=== PATIENT | male | born 1950 | race Caucasian/White ===

== ENCOUNTER 2017-07-07 16:05 | Emergency (ER) | payer MEDICARE, OTHER ==
[~2017-07-07] VITALS: Ht 177.8 cm; Wt 77.1 kg
--- NOTE | 2017-07-07 16:25 | NUR ---
DR HERBERT AT THE BEDSIDE FOR EVAL AND EXAM.
[2017-07-07] MEDS ORDERED: HYDR-3326 PO (16:48)
[2017-07-07] MEDS ORDERED: ACET-2154 PO (16:48)
[2017-07-07] MEDS ORDERED: QUET25TA PO (16:48)
[2017-07-07] MEDS ORDERED: DEXT1DRO3 OP (16:48)
[2017-07-07] MEDS ORDERED: MELA3TAB PO (16:48)
[2017-07-07] MEDS ORDERED: DEXT1CAP3 PO (16:48)
[2017-07-07] MEDS ORDERED: LORA0.5T PO (16:48)
[2017-07-07] MEDS ORDERED: SENN8.6T22 PO (16:48)
[2017-07-07] MEDS ORDERED: METO25TA6 PO (16:48)
[2017-07-07] MEDS ORDERED: CRAN450C PO (16:48)
[2017-07-07] MEDS ORDERED: OMEP20TA5 PO (16:48)
[2017-07-07] MEDS ORDERED: SERT25TA PO (16:48)
[2017-07-07] MEDS ORDERED: QUET50TA PO (16:48)
[2017-07-07] MEDS ORDERED: ALBU1.257 NEB (16:48)
[2017-07-07] MEDS ORDERED: MULT1TAB11 PO (16:48)
[2017-07-07] MEDS ORDERED: ASCO500T10 PO (16:48)
[2017-07-07] MEDS ORDERED: TRAM50TA2 PO (16:48)
--- NOTE | 2017-07-07 17:25 | NUR ---
CALLED [facility] AND NOTIFIED OF PT'S RETURN TO FACILITY.
--- NOTE | 2017-07-07 17:26 | NUR ---
CALLED [facility] FOR TX TRANSFERN ETA 30 MIN.
--- NOTE | 2017-07-07 18:03 | NUR ---
DR COOK CALLED AND PT WILL BE ADMITTED TO M/S.
--- NOTE | 2017-07-07 18:05 | NUR ---
[facility] TX CANCELLED.
--- NOTE | 2017-07-07 18:16 | NUR ---
[facility] COLLECTED AND SENT TO LAB, BELONGING LIST COMPLETED.
--- NOTE | 2017-07-07 18:18 | NUR ---
PT REFUSED BLOOD DRAW, ER AWARE.
--- NOTE | 2017-07-07 18:32 | NUR ---
PAGED DR COOK PER MD REQUEST. PT STATES HE DOES WANT BE ADMITTED.
--- NOTE | 2017-07-07 18:41 | NUR ---
DR COOK CALLED AND WAS NOTIFIED OF PT'S WISHES. [facility] CALLED AND ETA IS 30 MIN.
--- NOTE | 2017-07-07 18:42 | NUR ---
IV removed. Catheter intact and site benign. Pressure and 4x4 gauze applied to site. No bleeding noted.
[2017-07-07 18:45] VITALS: BP 121/78
--- NOTE | 2017-07-07 19:27 | NUR ---
[facility] HERE TO OB/GYN NURSE PATIENT. PATIENT LEFT IN STABLE CONDITION, NO ACUTE DISTRESS NOTED AT THIS TIME. Patient discharged to [facility] in stable conditon. Written and verbal after care instructions given. Patient verbalizes understanding of instructions.
== END 2017-07-07 19:32 | disposition home or self-care (01) ==
LOC: ER 16:05
DX: N99.538 Other complication of continent stoma of urinary tract (principal); Z85.51 Personal history of malignant neoplasm of bladder; I10 Essential (primary) hypertension
CPT/HCPCS: 71010; 73630; 93005; A4663

== ENCOUNTER 2017-07-19 15:01 | Inpatient (IN) | payer MEDICARE, OTHER ==
[~2017-07-19] VITALS: Ht 177.8 cm; Wt 77.1 kg
[~2017-07-19 15:01] MED LIST: ACET-2154 PO; ALBU1.257 NEB; ASCO500T10 PO; CRAN450C PO; DEXT1CAP3 PO; DEXT1DRO3 OP; HYDR-3326 PO; LORA0.5T PO; MELA3TAB PO; METO25TA6 PO; MULT1TAB11 PO; OMEP20TA5 PO; QUET25TA PO; QUET50TA PO; SENN8.6T22 PO; SERT25TA PO; TRAM50TA2 PO
[2017-07-19 15:54] LABS: EOSINOPHILS # (AUTO) 0.1 K/uL (0.0-0.7); LYMPHOCYTES # (AUTO) 1.7 K/UL (0.8-4.8); MONOCYTES # (AUTO) 0.3 K/UL (0.1-1.30)
[2017-07-19 15:58] LABS: BASOPHILS % (AUTO) 0.6 % (0.0-2.0); EOSINOPHILS % (AUTO) 0.9 % (0.0-7.0); HEMATOCRIT 45.7 % (40-50); HEMOGLOBIN 14.9 G/DL (14.0-18.0); LYMPHOCYTES % (AUTO) 22.4 % (20.5-51.5); MEAN CORPUSCULAR HEMOGLOBIN 30.7 UUG (27.0-31.0); MEAN CORPUSCULAR HGB CONC 33 g/dL (32.0-37.0); MEAN CORPUSCULAR VOLUME 93.9 FL (82.0-92.0); NEUTROPHILS # (AUTO) 5.5 K/UL (1.8-8.9); NEUTROPHILS % (AUTO) 72.1 % (38.5-71.5); PLATELET COUNT (AUTO) 309 K/UL (150-450); RED BLOOD CELL COUNT(AUTO) 4.87 MIL/UL (4.7-6.1); WHITE BLOOD COUNT (AUTO) 7.6 K/UL (4.0-11.2)
[2017-07-19 16:09] LABS: *BILIRUBIN,URIN NEGATIVE (NEGATIVE); *BLOOD, URINE NEGATIVE (NEGATIVE); *COLOR,URINE YELLOW (YELLOW); *KETONES,URINE NEGATIVE (NEGATIVE); *PROTEIN,URINE 1+ (NEGATIVE); *UROBILINOGEN,URINE 0.2 E.U./dl (NORMAL); LEUKOCYTE ESTERASE ,URINE TRACE (NEGATIVE); NITRITE, URINE NEGATIVE (NEGATIVE); PH,URINE 8.5 (5.0-8.0); UGLUCOSE NEGATIVE (NEGATIVE)
[2017-07-19 16:10] LABS: CREATININE 1.2 mg/dL (0.6-1.3); POTASSIUM 4.2 mmol/L (3.5-5.1)
[2017-07-19 16:16] LABS: ACETAMINOPHEN < 2.0 ug/mL (10-30); BILIRUBIN,DIRECT 0.1 mg/dL (0.0-0.2); BILIRUBIN,TOTAL 0.5 mg/dL (0.2-1.0); TOTAL PROTEIN, SERUM 7.7 g/dL (6.4-8.2)
[2017-07-19 16:24] LABS: *AMPHETAMINE, URINE NEGATIVE (NEGATIVE); *BARBITURATE, URINE NEGATIVE (NEGATIVE); *CANNABINOID, URINE POSITIVE (NEGATIVE); *COCCAINE, URINE NEGATIVE (NEGATIVE); *OPIATE, URINE POSITIVE (NEGATIVE); *PHENCYCLIDINE SCREEN,URINE NEGATIVE (NEGATIVE); ETHANOL < 3 MG/DL (0-0)
[2017-07-19 16:40] LABS: *CLARITY,URINE HAZY (CLEAR)
[2017-07-19 16:43] LABS: MUCUS,URINE MANY /LPF (0-FEW); TRIPLE PHOSPHATE CRYSTAL,UR MODERATE /HPF (NONE SEEN); URINE AMORPHOUS PHOSPHATES MODERATE /HPF
[2017-07-19 16:45] LABS: BACTERIA,URINE MODERATE /HPF (NONE SEEN)
[2017-07-19] MEDS ORDERED: SULF1TAB47 PO (17:02)
[2017-07-19] MEDS ORDERED: ASPI-618 PO (17:02)
[2017-07-19 20:56] VITALS: BP 110/73
[2017-07-20 07:37] VITALS: BP 104/70
[2017-07-20 12:30] VITALS: BP 104/68
[2017-07-20 16:06] VITALS: BP 107/68
[2017-07-20 20:35] VITALS: BP 113/73
[2017-07-21 00:38] VITALS: BP 92/44
[2017-07-21 04:00] VITALS: BP 94/50
[2017-07-21 07:46] VITALS: BP 93/55
[2017-07-21 11:55] VITALS: BP 99/70
[2017-07-21 15:33] VITALS: BP 108/67
[2017-07-21 19:41] VITALS: BP 105/69
[2017-07-22 10:37] VITALS: BP 117/68
[2017-07-22 15:07] VITALS: BP 110/74
[2017-07-22] MEDS ORDERED: METO25TA6 PO (17:33)
[2017-07-22] MEDS ORDERED: SULF1TAB3 PO (17:33)
[2017-07-22] MEDS ORDERED: ALBU1.25 NEB (17:33)
[2017-07-22] MEDS ORDERED: DIVA125T2 PO (17:33)
[2017-07-22 20:00] VITALS: BP 119/74
== END 2017-07-22 20:05 | DRG 689 ==
LOC: ER 15:03 → TELE 19:18 → MED 07-22 07:45
PROVIDERS: ADMIT Internal Medicine; ATTEND Internal Medicine
DX: N39.0 Urinary tract infection, site not specified (principal); I21.4 Non-ST elevation (NSTEMI) myocardial infarction; D68.59 Other primary thrombophilia; I11.0 Hypertensive heart disease with heart failure; R13.10 Dysphagia, unspecified; I50.22 Chronic systolic (congestive) heart failure; Z93.6 Other artificial openings of urinary tract status; F20.9 Schizophrenia, unspecified; Z87.11 Personal history of peptic ulcer disease; Z87.820 Personal history of traumatic brain injury; Z86.718 Personal history of other venous thrombosis and embolism; Z91.14 Patient's other noncompliance with medication regimen; Z85.51 Personal history of malignant neoplasm of bladder; Z87.898 Personal history of other specified conditions; F29 Unspecified psychosis not due to a substance or known physiological condition; F39 Unspecified mood [affective] disorder; G31.84 Mild cognitive impairment of uncertain or unknown etiology; B95.1 Streptococcus, group B, as the cause of diseases classified elsewhere
CPT/HCPCS: 36415; 70030-TC; 71010; 80307; 83605; 85025; 85730; 87040; 87086; 93005; 93307; A4663; G0480; G0480-TC; J0696; J1650; J7060

== ENCOUNTER 2018-12-14 15:56 | Inpatient (IN) | payer MEDICARE, MEDICAID ==
[~2018-12-14] VITALS: Ht 177.8 cm; Wt 78.0 kg
[~2018-12-14 15:56] MED LIST changes: +ALBU1.25 NEB; -ALBU1.257 NEB; +ASPI-618 PO; +DIVA125T2 PO; -LORA0.5T PO; +SULF1TAB3 PO; -TRAM50TA2 PO
--- NOTE | 2018-12-14 16:12 | NUR ---
NO REPORT RECEIVED FROM SENDING FACILITY.
--- NOTE | 2018-12-14 16:15 | NUR ---
PATIENT HERE FROM [facility]. HE IS AWAKE AND ALERT. PLACED ON MONITOR.
[2018-12-14] MEDS ORDERED: OXCA300T4 PO (16:22)
[2018-12-14 16:29] LABS: BASOPHILS # (AUTO) 0.1 K/uL (0.0-8.0); BASOPHILS % (AUTO) 0.8 % (0.0-2.0); EOSINOPHILS # (AUTO) 0.2 K/uL (0.0-0.7); EOSINOPHILS % (AUTO) 2.7 % (0.0-7.0); HEMATOCRIT 42.4 % (36.7-47.1); HEMOGLOBIN 14.2 g/dL (12.5-16.3); LYMPHOCYTES # (AUTO) 2.6 K/uL (20.0-40.0); LYMPHOCYTES % (AUTO) 31.2 % (20.5-51.5); MEAN CORPUSCULAR HEMOGLOBIN 31.7 uug (23.8-33.4); MEAN CORPUSCULAR HGB CONC 34 g/dL (32.5-36.3); MEAN CORPUSCULAR VOLUME 94.5 fL (73.0-96.2); MONOCYTES # (AUTO) 0.6 K/uL (2.0-10.0); NEUTROPHILS # (AUTO) 4.9 K/uL (1.8-8.9); NEUTROPHILS % (AUTO) 58.3 % (38.5-71.5); PLATELET COUNT (AUTO) 211 K/uL (152-348); RED BLOOD CELL COUNT(AUTO) 4.48 MIL/uL (4.06-5.63); WHITE BLOOD COUNT (AUTO) 8.4 K/uL (3.6-10.2)
[2018-12-14 16:36] LABS: POTASSIUM 4.5 mmol/L (3.5-5.1)
[2018-12-14] MEDS ORDERED: ACETAMINOPHEN ES 500 MG TABLET ONE (16:54)
[2018-12-14] MEDS ORDERED: NORMAL SALINE FLUSH 10 ML DISP.SYRIN ONE (16:58)
[2018-12-14] MEDS ORDERED: IOHEXOL 300MG/ML 100 ML INFUS..BTL ONE (16:58)
[2018-12-14] MEDS ORDERED: SWABABLE VALVE TRANSFER SET EA MC ONE (16:58)
[2018-12-14] MEDS ORDERED: IV NORMAL SALINE 250 ML IV ONE (16:58)
[2018-12-14] MEDS ORDERED: ACETAMINOPHEN ES 500 MG TABLET PO ONE (17:00)
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
[2018-12-14 18:00] LABS: *BILIRUBIN,URIN NEGATIVE (NEGATIVE); *BLOOD, URINE NEGATIVE (NEGATIVE); *CLARITY,URINE CLOUDY (CLEAR); *COLOR,URINE YELLOW (YELLOW); *KETONES,URINE NEGATIVE (NEGATIVE); *UROBILINOGEN,URINE 0.2 E.U./dl (NORMAL); LEUKOCYTE ESTERASE ,URINE 2+ (NEGATIVE); NITRITE, URINE NEGATIVE (NEGATIVE); UGLUCOSE NEGATIVE (NEGATIVE)
[2018-12-14 18:04] LABS: BACTERIA,URINE MANY /HPF (NONE SEEN); URINE AMORPHOUS PHOSPHATES MODERATE /HPF; WBC,URINE 20-50 /HPF (0-3)
--- NOTE | 2018-12-14 18:10 | NUR ---
ORIN MENENDEZ, WAS NOTIFIED THAT PATIENT IS BEING ADMITTED. REPORT GIVEN TO CONNOR HDZ.
[2018-12-14] MEDS ORDERED: VANCOMYCIN IV 200 ML ONE (18:14)
[2018-12-14] MEDS ORDERED: VANCOMYCIN IV 1,000 MG in IV DEXTROSE 5% 250 ML IV ONE (18:15)
[2018-12-14 18:32] VITALS: BP 130/82
--- NOTE | 2018-12-14 18:45 | NUR ---
68 year old male received from er via gurney for back pain ,pt is [id number] are stable call light with in reach, called for admission orders
[2018-12-14 19:00] VITALS: BP 115/76
[2018-12-14 20:15] VITALS: BP 125/75
[2018-12-14] MEDS ORDERED: ALBU1.25 IH (20:29)
[2018-12-14] MEDS ORDERED: METO25TA6 PO (20:29)
--- NOTE | 2018-12-14 20:30 | NUR ---
Admitted to [facility] floor via gurney, awake alert & oriented no SOB denies chest pain. Urostomy in place, strong odor w/ puss-like urine output noted. Patient stated he has lower back skin infection & c/o rectal pain. MD in room, seen & examined by Dr. Nugent. Received orders & carried out. Vital signs WNL, patient is afebrile.
[2018-12-14] MEDS ORDERED: METOPROLOL TARTRATE 25 MG TABLET PO SCH (21:00)
[2018-12-14] MEDS ORDERED: ACETAMINOPHEN 325 MG TABLET PO PRN (21:00)
[2018-12-14] MEDS ORDERED: Medication Not On Formulary EA (Quetiapine Fumarate (Seroquel) 50 MG) PO SCH (21:00)
[2018-12-14] MEDS ORDERED: ALBUTEROL SULFATE 1.25 MG/3 ML NEBU IH PRN (21:00)
[2018-12-14] MEDS: MELATONIN 3 MG TABLET PO SCH (21:38)
[2018-12-14] MEDS: HYDROCODONE/APAP 5-325MG TABLET PO PRN (21:38)
[2018-12-14] MEDS: SENNOSIDES 1 TABLET PO SCH (21:39)
[2018-12-14] MEDS ORDERED: PIPERACILLIN SODIUM/TAZO 3.375 GM VIAL ONE (21:48)
[2018-12-14] MEDS: PIPERACILLIN/TAZOBACTAM/D5W 3.375 G in PREMIXED 1 EACH IV SCH (22:07)
[2018-12-14] MEDS: QUETIAPINE FUMARATE 25 MG TABLET PO SCH (22:11)
--- NOTE | 2018-12-14 22:30 | NUR ---
Zosyn 3.375 gm IVPB started as ordered. Late dinner provided, kept comfortable.
--- NOTE | 2018-12-15 | NUR ---
Had small BM. Perianal care provided, rectum abscess noted. See pictures in chart.
[2018-12-15] MEDS: PIPERACILLIN/TAZOBACTAM/D5W 3.375 G in PREMIXED 1 EACH IV SCH ×3 (05:24→22:00)
[2018-12-15] MEDS: PANTOPRAZOLE SODIUM 40 MG TABLET.DR PO SCH (05:25)
--- NOTE | 2018-12-15 05:35 | NUR ---
Patient refused getting her blood drawn. Patient refused to take her morning meds too. No sign of distress noted. Vital signs WNL. Addendum: 12/15/18 at 0546 by ALBERTO GORDON RN Disregard above notes, wrong entry.
--- NOTE | 2018-12-15 05:40 | NUR ---
Patient refused morning labs. No sign of distress noted. Vital signs WNL. Fall precaution observed, call light within reach.
[2018-12-15] MEDS ORDERED: Medication Not On Formulary EA (Sertraline Hcl (Zoloft) 25 MG) PO SCH (09:00)
[2018-12-15] MEDS ORDERED: Medication Not On Formulary EA (Multivitamins W-Minerals (Multivitamin With Minerals) 1 PO SCH (09:00)
[2018-12-15] MEDS: QUETIAPINE FUMARATE 25 MG TABLET PO SCH ×2 (09:06→21:00)
[2018-12-15] MEDS: SERTRALINE HCL 50 MG TABLET PO SCH (09:06)
[2018-12-15] MEDS: ASPIRIN EC 81 MG TABLET.DR PO SCH (09:06)
[2018-12-15] MEDS: MULTIVITAMINS,THERAPEUTIC TABLET PO SCH (09:07)
[2018-12-15] MEDS: ASCORBIC ACID 500 MG TABLET PO SCH ×2 (09:07→16:36)
--- NOTE | 2018-12-15 09:27 | NUR ---
Clinical pharmacy note-Vancomycin dosing per pharmacy Subjective: To start Vancomycin dosing on this patient for Documented infection(No MD note yet, ER note lower back pain concerning for infection) Objective: BUN /Scr 22/1.0(12/14) WBC 8.4(12/14) temp 98.7 Assessment/Plan: Patient had Vancomycin 1 gram in ER yesterday at 1817 Will continue Vancomycin 1gram IV every 12 hrs (first dose today at 1000) and draw trough by 4th dose(not ordered yet) for expected trough around 16. Will monitor daily.
[2018-12-15] MEDS: OXCARBAZEPINE 300 MG TABLET PO SCH ×3 (09:57→16:36)
[2018-12-15] MEDS: HYDROCODONE/APAP 5-325MG TABLET PO PRN ×2 (09:57→16:46)
[2018-12-15] MEDS ORDERED: VANCOMYCIN IV 1 G in PREMIXED 0 EACH IV SCH (10:00)
[2018-12-15 10:13] LABS: BASOPHILS # (AUTO) 0.1 K/uL (0.0-8.0); BASOPHILS % (AUTO) 0.9 % (0.0-2.0); EOSINOPHILS # (AUTO) 0.2 K/uL (0.0-0.7); EOSINOPHILS % (AUTO) 3.9 % (0.0-7.0); HEMATOCRIT 42.7 % (36.7-47.1); HEMOGLOBIN 14.5 g/dL (12.5-16.3); LYMPHOCYTES % (AUTO) 33.4 % (20.5-51.5); MEAN CORPUSCULAR HGB CONC 34 g/dL (32.5-36.3); MEAN CORPUSCULAR VOLUME 94.5 fL (73.0-96.2); MONOCYTES # (AUTO) 0.5 K/uL (2.0-10.0); MONOCYTES % (AUTO) 7.8 % (0.0-11.0); NEUTROPHILS # (AUTO) 3.2 K/uL (1.8-8.9); PLATELET COUNT (AUTO) 183 K/uL (152-348); RED BLOOD CELL COUNT(AUTO) 4.52 MIL/uL (4.06-5.63); WHITE BLOOD COUNT (AUTO) 5.9 K/uL (3.6-10.2)
[2018-12-15 10:36] LABS: THYROID STIMULATING HORMONE 1.037 mIU/mL (0.358-3.740)
[2018-12-15 11:02] VITALS: BP 95/51
--- NOTE | 2018-12-15 11:07 | NUR ---
WOUND CARE CONSULT WOUND CARE RECEIVED CONSULT FOR BACK PHLEGMON AND BUTTOCKS ABSCESS. WOUND CARE WILL DEFER CONSULT AND TREATMENT PLAN TO PLASTIC SURGICAL TEAM WHO HAS BEEN NOTIFIED OF THIS CONSULT. PATIENT WITH CECY AT 16, ALL PRESSURE ULCER PREVENTION MEASURES ARE NOTED TO BE IN PLACE. WILL SEE PRN.
[2018-12-15 11:59] LABS: BILIRUBIN,TOTAL 0.4 mg/dL (0.2-1.0); CREATININE 1.1 mg/dL (0.6-1.3); PHOSPHOROUS 3.1 mg/dL (2.5-4.9); TOTAL PROTEIN, SERUM 6.7 g/dL (6.4-8.2)
[2018-12-15 12:04] LABS: POTASSIUM 4.1 mmol/L (3.5-5.1)
--- NOTE | 2018-12-15 12:17 | NUR ---
Pt refused second IV site insertion. Pt was explained the benefits of have a second line and have zosyn run for a longer period of time. Pt understands the benefits and still refuses. Continue to monitor pt.
[2018-12-15 15:42] VITALS: BP 100/68
--- NOTE | 2018-12-15 18:17 | NUR ---
Pt has been sleeping intermittently through out the day, isolative,guarded, Aox3, ambulatory but refuses to walk, resistant to care. no signs of respiratory distress. Pain managed with [place], pt c/o 7-9 level pain on back. Pt's DPOA faxed paper work to nursing station. Continue to monitor pt.
--- NOTE | 2018-12-15 20:00 | NUR ---
RECEIVED PATIENT ASLEEP IN BED. PATIENT IS EASILY AROUSABLE. VERY HOSTILE WHEN APPROACHED. PATIENT REFUSED HS VITALS TO BE TAKEN. NO RESP. DISTRESS NOTED. H/L INTACT AND NOTED TO RIGHT HAND #20 GAUGE. BED ALARM ON. ALL NEEDS ATTENDED. WILL CONTINUE TO MONITOR AND ASSESS.
[2018-12-15] MEDS: SENNOSIDES 1 TABLET PO SCH (21:00)
[2018-12-15] MEDS: MELATONIN 3 MG TABLET PO SCH (21:00)
[2018-12-15] MEDS: SIMVASTATIN 10 MG TABLET PO SCH (21:00)
--- NOTE | 2018-12-15 22:06 | NUR ---
PATIENT PULLED OUT IV HEPLOCK. PATIENT IS REFUSING FOR IN RE-INSERTION. PATIENT INSTRUCTED THE IMPORTANCE OF IV ANTIBIOTICS, BUT PATIENT STILL REFUSED AND BECAME HOSTILE. CALLED OUT TO DR. GRIFFIN TRACTOR SWEEPER DRIVER FOR FURTHER ORDERS.
--- NOTE | 2018-12-15 22:15 | NUR ---
DR. GRIFFIN AWARE OF PATIENT REFUSING IV RE-INSERTION AND IV ANTIBIOTICS. OK PER MD UNTIL AM. PRIMARY SUBSTANCE ABUSE COUNSELOR NOTIFIED.
[2018-12-16] MEDS: PIPERACILLIN/TAZOBACTAM/D5W 3.375 G in PREMIXED 1 EACH IV SCH ×3 (05:19→22:03)
[2018-12-16] MEDS: PANTOPRAZOLE SODIUM 40 MG TABLET.DR PO SCH (06:02)
--- NOTE | 2018-12-16 06:07 | NUR ---
PATIENT ASLEEP IN BED. SLEPT WELL. EASILY AROUSABLE. PATIENT VERY HOSTILE WHEN APPROACHED. REFUSED FOR AM VITALS TO BE TAKEN. EDUCATED PATIENT ON IMPORTANCE OF VITALS AND PATIENT STILL REFUSED, YELLING AT STAFF. DIRECTOR OF VOCATIONAL GUIDANCE NOTIFIED. PATIENT DENIES PAIN. NO RESP. DISTRESS NOTED. WILL CONTINUE TO MONITOR.
[2018-12-16] MEDS: ASPIRIN EC 81 MG TABLET.DR PO SCH (08:53)
[2018-12-16] MEDS: OXCARBAZEPINE 300 MG TABLET PO SCH ×4 (08:53→17:15)
[2018-12-16] MEDS: MULTIVITAMINS,THERAPEUTIC TABLET PO SCH (08:53)
[2018-12-16] MEDS: QUETIAPINE FUMARATE 25 MG TABLET PO SCH ×2 (08:53→21:07)
[2018-12-16] MEDS: ASCORBIC ACID 500 MG TABLET PO SCH ×3 (08:54→17:15)
[2018-12-16] MEDS: SERTRALINE HCL 50 MG TABLET PO SCH (08:54)
--- NOTE | 2018-12-16 08:55 | NUR ---
Attempted to give AM PO meds to pt, but pt refused. Educated pt regarding meds, but pt still continued to refuse.
[2018-12-16 11:22] VITALS: BP 116/82
[2018-12-16] MEDS: HYDROCODONE/APAP 5-325MG TABLET PO PRN ×2 (11:38→19:50)
[2018-12-16 15:32] VITALS: BP 107/68
[2018-12-16 19:13] VITALS: BP 107/69
--- NOTE | 2018-12-16 20:00 | NUR ---
RECEIVED PATIENT AWAKE IN BED. PATIENT IS A/O X3. VERY ELATED WHEN APPROACHED. C/O PAIN IN LOWER BACK. PATIENT GIVEN NORCO 1 TAB PO PRN FOR PAIN. H/L INTACT AND PATENT. NO RESP. DISTRESS NOTED. ON AIR MATTRESS. BED ALARM ON. CALL LIGHT IN REACH. ALL NEEDS ATTENDED. WILL CONTINUE TO MONITOR AND ASSESS.
[2018-12-16] MEDS: MELATONIN 3 MG TABLET PO SCH (21:06)
[2018-12-16] MEDS: SIMVASTATIN 10 MG TABLET PO SCH (21:06)
[2018-12-16] MEDS: SENNOSIDES 1 TABLET PO SCH (21:07)
[2018-12-17] MEDS: PIPERACILLIN/TAZOBACTAM/D5W 3.375 G in PREMIXED 1 EACH IV SCH ×2 (06:05→13:17)
[2018-12-17] MEDS: PANTOPRAZOLE SODIUM 40 MG TABLET.DR PO SCH (06:16)
[2018-12-17] MEDS: QUETIAPINE FUMARATE 25 MG TABLET PO SCH (09:00)
[2018-12-17] MEDS: ASPIRIN EC 81 MG TABLET.DR PO SCH (09:00)
[2018-12-17] MEDS: MULTIVITAMINS,THERAPEUTIC TABLET PO SCH (09:00)
[2018-12-17] MEDS: ASCORBIC ACID 500 MG TABLET PO SCH ×2 (09:00→17:06)
[2018-12-17] MEDS: HYDROCODONE/APAP 5-325MG TABLET PO PRN ×2 (10:00→17:09)
[2018-12-17] MEDS: SERTRALINE HCL 50 MG TABLET PO SCH (10:02)
[2018-12-17] MEDS: OXCARBAZEPINE 300 MG TABLET PO SCH ×3 (10:06→17:07)
[2018-12-17 11:14] VITALS: BP 97/68
[2018-12-17] MEDS ORDERED: MORPHINE SULFATE 2 MG/1 ML DISP.SYRIN IV ONE (13:15)
[2018-12-17] MEDS ORDERED: MORPHINE SULFATE 4 MG/1 ML DISP.SYRIN IV ONE (13:15)
[2018-12-17] MEDS ORDERED: PANT40TA2 PO (13:58)
[2018-12-17] MEDS ORDERED: SIMV10TA6 PO (13:58)
[2018-12-17] MEDS ORDERED: PIPE3.379 IV (14:02)
[2018-12-17] MEDS ORDERED: RXVAN IV (14:02)
[2018-12-17] MEDS ORDERED: LACT1CAP61 PO (14:02)
[2018-12-17] MEDS ORDERED: CEFE1VIA3 IV (14:07)
[2018-12-17 15:13] VITALS: BP 108/68
--- NOTE | 2018-12-17 18:22 | NUR ---
[facility] PT is in no acute distress. Left IV on right AC #20 intact [facility] Pt verbalized understanding. Pt refused to have vaccination and to f/u with PMD.
== END 2018-12-17 18:24 | DRG 557 ==
LOC: ER 15:58 → MED 18:14
PROVIDERS: ADMIT Internal Medicine; ATTEND Internal Medicine
DX: M60.08 Infective myositis, other site (principal); G93.41 Metabolic encephalopathy; N39.0 Urinary tract infection, site not specified; D68.59 Other primary thrombophilia; B96.1 Klebsiella pneumoniae [K. pneumoniae] as the cause of diseases classified elsewhere; Z87.820 Personal history of traumatic brain injury; F19.10 Other psychoactive substance abuse, uncomplicated; I71.4 Abdominal aortic aneurysm, without rupture; K44.9 Diaphragmatic hernia without obstruction or gangrene; K40.90 Unilateral inguinal hernia, without obstruction or gangrene, not specified as recurrent; F17.210 Nicotine dependence, cigarettes, uncomplicated; I25.2 Old myocardial infarction; F41.9 Anxiety disorder, unspecified; E78.5 Hyperlipidemia, unspecified; F20.9 Schizophrenia, unspecified; G31.84 Mild cognitive impairment of uncertain or unknown etiology; R13.10 Dysphagia, unspecified; I11.9 Hypertensive heart disease without heart failure; K27.7 Chronic peptic ulcer, site unspecified, without hemorrhage or perforation; J39.8 Other specified diseases of upper respiratory tract; L90.5 Scar conditions and fibrosis of skin; Z74.09 Other reduced mobility; F32.9 Major depressive disorder, single episode, unspecified; Z85.828 Personal history of other malignant neoplasm of skin; Z91.14 Patient's other noncompliance with medication regimen; Z99.3 Dependence on wheelchair; Z91.19 Patient's noncompliance with other medical treatment and regimen; Z93.6 Other artificial openings of urinary tract status; Z79.82 Long term (current) use of aspirin; Z89.012 Acquired absence of left thumb; Z79.899 Other long term (current) drug therapy; Z86.718 Personal history of other venous thrombosis and embolism; Z87.440 Personal history of urinary (tract) infections; Z80.1 Family history of malignant neoplasm of trachea, bronchus and lung; Z85.51 Personal history of malignant neoplasm of bladder; K59.00 Constipation, unspecified
CPT/HCPCS: 36415; 71045; 83550; 83605; 83735; 84100; 84443; 85025; 87040; 87077; 87086; 93005; 97116; 97530; A4663; A9150; G0378; J2270; J2543; J3370; J3490; J7050; J7060; Q9967

== ENCOUNTER 2019-06-14 21:33 | Inpatient (IN) | payer MEDICARE, MEDICAID ==
[~2019-06-14] VITALS: Ht 180.3 cm; Wt 69.4 kg
[~2019-06-14 21:33] MED LIST changes: +ALBU1.25 IH; -ALBU1.25 NEB; +CEFE1VIA3 IV; -DEXT1CAP3 PO; -DIVA125T2 PO; +LACT1CAP61 PO; -OMEP20TA5 PO; +OXCA300T4 PO; +PANT40TA2 PO; +PIPE3.379 IV; +SIMV10TA6 PO; -SULF1TAB3 PO
--- NOTE | 2019-06-14 21:45 | NUR ---
Dr. Bhatt at bedside for MSE.
[2019-06-14] MEDS ORDERED: ONDANSETRON 4 MG/2 ML VIAL IV ONE (22:00)
[2019-06-14] MEDS ORDERED: IV NORMAL SALINE 1000 ML BAG IV ONE (22:00)
[2019-06-14] MEDS ORDERED: diphenhydrAMINE 50 MG CAPSULE PO ONE (22:00)
[2019-06-14] MEDS ORDERED: HYDROCODONE/APAP 10-325 MG TABLET PO ONE (22:00)
--- NOTE | 2019-06-14 22:02 | NUR ---
Xray at bedside.
--- NOTE | 2019-06-14 22:03 | NUR ---
While starting IV, patient pulled IV from the arm and threw it, stated he doesn't want any IV anymore. made aware.
--- NOTE | 2019-06-14 22:05 | NUR ---
Pt refused IV, blooddraw, and chest x-ray, notified.
--- NOTE | 2019-06-14 22:06 | NUR ---
Called Sidney Vasquez LCSW for pt psych eval
[2019-06-14] MEDS ORDERED: diphenhydrAMINE 50 MG CAPSULE ONE (22:12)
[2019-06-14] MEDS ORDERED: HYDROCODONE/APAP 10-325 MG TABLET ONE (22:12)
--- NOTE | 2019-06-14 22:31 | NUR ---
Urine sample collected from pt's urostomy bag, urine sent to lab. Pt provided with sandwich and juice per request.
[2019-06-14 22:33] LABS: *BILIRUBIN,URIN 1+ (NEGATIVE); *BLOOD, URINE 3+ (NEGATIVE); *CLARITY,URINE CLOUDY (CLEAR); *COLOR,URINE YELLOW (YELLOW); *KETONES,URINE 1+ (NEGATIVE); *UROBILINOGEN,URINE 0.2 E.U./dl (NORMAL); LEUKOCYTE ESTERASE ,URINE 1+ (NEGATIVE); NITRITE, URINE POSITIVE (NEGATIVE); UGLUCOSE NEGATIVE (NEGATIVE)
--- NOTE | 2019-06-14 22:34 | NUR ---
Sidney GUSTAFSONW arrived to ER for pt psych eval.
--- NOTE | 2019-06-14 22:44 | NUR ---
Art Capilla DOLPHIN RESEARCHER at bedside.
[2019-06-14 22:47] LABS: *AMPHETAMINE, URINE NEGATIVE (NEGATIVE); *BARBITURATE, URINE NEGATIVE (NEGATIVE); *CANNABINOID, URINE NEGATIVE (NEGATIVE); *COCCAINE, URINE NEGATIVE (NEGATIVE); *OPIATE, URINE NEGATIVE (NEGATIVE); *PHENCYCLIDINE SCREEN,URINE NEGATIVE (NEGATIVE)
[2019-06-14 22:48] LABS: RBC,URINE 80-100 /HPF (0-3)
[2019-06-14 22:51] LABS: BACTERIA,URINE MODERATE /HPF (NONE SEEN); SQUAMOUS EPITHELIAL CELL,UR FEW /HPF (NONE SEEN)
[2019-06-14] MEDS ORDERED: OLANZAPINE 10 MG VIAL IM ONE ×2 (22:57→23:00)
--- NOTE | 2019-06-14 23:00 | NUR ---
Pt refusing IV, was verbally abusive to staff, and was combative. Patient placed on soft medical restraints for safety. Patient was resisting and fighting the whole time while being placed on restraints.
[2019-06-14] MEDS ORDERED: OXYC10TA59 PO (23:08)
[2019-06-14] MEDS ORDERED: OXCA150T5 PO (23:08)
[2019-06-14] MEDS ORDERED: GABA300C PO (23:08)
[2019-06-14] MEDS ORDERED: CEFTRIAXONE 1 G VIAL ONE (23:13)
[2019-06-14] MEDS ORDERED: CEFTRIAXONE 1 G in IV DEXTROSE 5% 50 ML IV ONE (23:15)
--- NOTE | 2019-06-14 23:16 | NUR ---
Xray at bedside.
[2019-06-14 23:18] LABS: BASOPHILS % (AUTO) 0.5 % (0.0-2.0); EOSINOPHILS # (AUTO) 0.2 K/uL (0.0-0.7); HEMATOCRIT 41.1 % (36.7-47.1); LYMPHOCYTES # (AUTO) 2.6 K/uL (20.0-40.0); MEAN CORPUSCULAR HEMOGLOBIN 32.6 uug (23.8-33.4); MEAN CORPUSCULAR HGB CONC 34 g/dL (32.5-36.3); MEAN CORPUSCULAR VOLUME 95.8 fL (73.0-96.2); MONOCYTES # (AUTO) 0.6 K/uL (2.0-10.0); MONOCYTES % (AUTO) 6.7 % (0.0-11.0); NEUTROPHILS # (AUTO) 5.2 K/uL (1.8-8.9); NEUTROPHILS % (AUTO) 60.8 % (38.5-71.5); PLATELET COUNT (AUTO) 317 K/uL (152-348); RED BLOOD CELL COUNT(AUTO) 4.29 MIL/uL (4.06-5.63); WHITE BLOOD COUNT (AUTO) 8.6 K/uL (3.6-10.2)
[2019-06-14] MEDS ORDERED: ETOMIDATE 20 MG/10 ML VIAL ONE (23:20)
--- NOTE | 2019-06-14 23:20 | NUR ---
RADIOLOGY at bedside for CXR. Patient complaining of RIGHT shoulder pain during XRAY. ERMD notified, observed possible signs of RIGHT shoulder dislocation. Orders received.
--- NOTE | 2019-06-14 23:26 | NUR ---
Dr. Bhatt and Respiratory at bedside to begin conscious sedation and shoulder realignment procedure.
--- NOTE | 2019-06-14 23:27 | NUR ---
5mg etomidate given IV to left AC 20G.
--- NOTE | 2019-06-14 23:28 | NUR ---
5mg etomidate given IV to left AC 20G
[2019-06-14] MEDS ORDERED: ETOMIDATE 20 MG/10 ML VIAL IV ONE (23:30)
[2019-06-14 23:33] LABS: ACETAMINOPHEN 10.6 ug/mL (10-30); ALANINE AMINOTRANSFERASE 13 U/L (16-63); ALKALINE PHOSPHATASE 74 U/L (50-136); ASPARTATE AMINOTRANSFERASE 8 U/L (15-37); BILIRUBIN,DIRECT 0.1 mg/dL (0.0-0.2); BILIRUBIN,TOTAL 0.6 mg/dL (0.2-1.0); CARBON DIOXIDE 27 mmol/L (21-32); CHLORIDE 104 mmol/L (98-107); CREATININE 1.4 mg/dL (0.6-1.3); GLUCOSE 101 mg/dL (74-106); POTASSIUM 3.6 mmol/L (3.5-5.1); TOTAL PROTEIN, SERUM 8.1 g/dL (6.4-8.2); UREA NITROGEN, BLOOD 27 mg/dL (7-18)
--- NOTE | 2019-06-14 23:35 | NUR ---
2 point soft restraints released, pt stable, circulation is intact, no acute signs of distress, VSS.
--- NOTE | 2019-06-14 23:41 | NUR ---
Xray at bedside.
[2019-06-14 23:47] LABS: ETHANOL < 3 MG/DL (0-0)
--- NOTE | 2019-06-15 00:16 | NUR ---
CALLED EPIC PANEL. WAITING FOR ESTEPHANIE TURNER NP TO CALL BACK
--- NOTE | 2019-06-15 00:27 | NUR ---
Dr. Bhatt on panel call with Milo Pelayo NP. Pt accepted for admission to MHU, diagnosis: psychosis.
--- NOTE | 2019-06-15 00:48 | NUR ---
Report given to Sonal HDZ MHU.
[2019-06-15 00:58] LABS: THYROID STIMULATING HORMONE 0.767 mIU/mL (0.358-3.740)
[2019-06-15] MEDS ORDERED: MAG HYDROX/AL HYDROX/SIMETH 30 ML LIQUID UDC PO PRN (01:30)
[2019-06-15] MEDS ORDERED: ACETAMINOPHEN 325 MG TABLET PO PRN ×2 (01:30→13:45)
[2019-06-15] MEDS ORDERED: MAGNESIUM HYDROXIDE 30 ML LIQUID UDC PO PRN (01:30)
[2019-06-15] MEDS ORDERED: TEMAZEPAM 7.5 MG CAPSULE PO PRN (01:30)
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
[2019-06-15 02:40] VITALS: BP 101/57
[2019-06-15] MEDS: CLONAZEPAM 0.5 MG TABLET PO PRN (03:14)
[2019-06-15 07:30] VITALS: BP 102/64
--- NOTE | 2019-06-15 07:43 | NUR ---
350ml urine output was removed from patient's urostomy bag. pt refused blood drawn. will continue to monitor.
[2019-06-15] MEDS: NICOTINE 14 MG/24HR PATCH TD SCH (09:00)
[2019-06-15] MEDS: OLANZAPINE ZYDIS 5 MG TAB.RAPDIS PO SCH (12:25)
[2019-06-15] MEDS: DIVALPROEX 250 MG TABLET.DR PO SCH ×4 (12:25→17:39)
[2019-06-15] MEDS: CEphaleXIN 500 MG CAPSULE PO SCH ×3 (12:25→17:39)
[2019-06-15 16:00] VITALS: BP 119/75
--- NOTE | 2019-06-15 16:21 | NUR ---
Initial Discharge note Pt resides at [facility]: Address: [address] [place] [address], [place] [address]; , and will return upo discharge. Spoke with patients Konrad SCHAFER [[phone]] and he would like pt to return to [place].
[2019-06-15] MEDS: GABAPENTIN 400 MG CAPSULE PO SCH ×2 (17:00→17:39)
[2019-06-15] MEDS ORDERED: GABAPENTIN 300 MG CAPSULE PO SCH (17:00)
[2019-06-15] MEDS ORDERED: Medication Not On Formulary EA (Lactobacillus Acidophilus (Acidophilus) 1 EACH) PO SCH (17:00)
--- NOTE | 2019-06-15 17:30 | NUR ---
Gps/Foundry Patternmaker- Patient refusing to take routine pm meds. stated" i dont want to take those poison, and make sure to take it out of my bills" Patches of rashes upper back and lower extremities/shins area w/ dry scabs and patches of redness/bumps. Urostomy right quadrant of abdomen intact, draining hazy yellow urine. Fluids offered and encouraged. Assisted with repositioning self in bed. Irritable , encouraged participations in his group therapy. Stays in bed most of the day, refusing to be bothered.
[2019-06-15] MEDS: ASCORBIC ACID 500 MG TABLET PO SCH (17:39)
[2019-06-15 20:31] VITALS: BP 114/74
[2019-06-15] MEDS ORDERED: OXYCODONE HCL 5 MG TABLET ONE (20:36)
[2019-06-15] MEDS ORDERED: OXYCODONE HCL 10 MG TAB.SR.12H PO ONE (20:55)
[2019-06-15] MEDS ORDERED: Medication Not On Formulary EA (Oxycodone Hcl (Oxycontin) 15 MG) PO SCH (21:00)
[2019-06-15] MEDS: MELATONIN 3 MG TABLET PO SCH (21:00)
[2019-06-15] MEDS: SIMVASTATIN 10 MG TABLET PO SCH (21:00)
[2019-06-15] MEDS: CULTURELLE CAPSULE PO SCH (21:00)
[2019-06-15] MEDS: METOPROLOL TARTRATE 25 MG TABLET PO SCH (21:00)
[2019-06-15] MEDS: OXYCODONE HCL 10 MG TAB.SR.12H PO SCH (21:01)
[2019-06-16] MEDS: PANTOPRAZOLE SODIUM 40 MG TABLET.DR PO SCH (06:16)
[2019-06-16 07:30] VITALS: BP 98/75
[2019-06-16] MEDS: ASCORBIC ACID 500 MG TABLET PO SCH ×2 (09:00→17:36)
[2019-06-16] MEDS: MULTIVIT, IRON, MIN NO. 8, FA TABLET PO SCH (09:00)
[2019-06-16] MEDS: NICOTINE 14 MG/24HR PATCH TD SCH (09:00)
[2019-06-16] MEDS ORDERED: Medication Not On Formulary EA (Multivitamins W-Minerals (Multivitamin With Minerals) 1 PO SCH (09:00)
[2019-06-16] MEDS: METOPROLOL TARTRATE 25 MG TABLET PO SCH ×2 (09:00→20:34)
[2019-06-16] MEDS: CULTURELLE CAPSULE PO SCH ×2 (09:00→20:07)
[2019-06-16] MEDS: SENNOSIDES 1 TABLET PO SCH (09:00)
[2019-06-16] MEDS: CEphaleXIN 500 MG CAPSULE PO SCH ×2 (09:13→17:36)
[2019-06-16] MEDS: GABAPENTIN 400 MG CAPSULE PO SCH ×2 (09:13→17:36)
[2019-06-16] MEDS: DIVALPROEX 250 MG TABLET.DR PO SCH ×3 (09:14→17:36)
[2019-06-16] MEDS: OXYCODONE HCL 10 MG TAB.SR.12H PO SCH ×2 (09:14→20:33)
[2019-06-16] MEDS: OLANZAPINE ZYDIS 5 MG TAB.RAPDIS PO SCH (09:17)
[2019-06-16] MEDS: ASPIRIN EC 81 MG TABLET.DR PO SCH (09:18)
[2019-06-16] MEDS: HYDROCODONE/APAP 5-325MG TABLET PO PRN ×2 (11:59→17:42)
--- NOTE | 2019-06-16 13:26 | NUR ---
Gps/Form Grader Operator- Patient anxious, pushing front door, claimed he needs to get out of here" i am not a prisoner, in need to smoke to next building". Informed pt. he is on hold and cant not leave the hospital, patient was upset, verbalized anger, calling Doctors names . Claimed he gets angry easily. [place] self around the unit, offered prn [place] claimed will take the med. but when offered, refused to take, claimed he does not want to take poison .
[2019-06-16] MEDS: CLONAZEPAM 0.5 MG TABLET PO PRN (14:59)
[2019-06-16 15:42] VITALS: BP 91/65
--- NOTE | 2019-06-16 16:27 | NUR ---
PT NOTED ON W/C AT THIS TIME IN NURSES STATION. HIGHLY ANXIOUS AND AGITATED. DEMANDING ALL HIS CLOTHING FROM THE LOCKER. STATES STAFF "STOLE ALL MY SHIT, YOU FUCKING THIEVES." PT REQUESTING PANTS, BUT INSTRUCTED THAT THE STRINGS MUST BE CUT OFF OR REMOVED, DUE TO UNIT POLICY AND SAFETY. PT BECAME EVEN MORE AGGRESSIVE, THREATENING TO LETY EVERYONE, DEMANDING NURSE STAFF FIRST AND LAST NAME, STATES "I DON'T FUCKING CARE ABOUT OTHER PEOPLE THAT GET THAT SHIT, IF THEY WANT THEM TO HANG THEMSELVES, I COULDN'T GIVE TWO SHITS. BUT I WANT BY FUCKING PANTS." SECURITY WAS PRESENT. ESCORTED HIM OUTSIDE OF NURSES STATION. PT THEN WENT TO DAY ROOM, REMAINS CUSSING AT STAFF, MAKING REMARKS SUCH "YOU FUCKING LOSERS" AND OTHER BAD NAMES.
--- NOTE | 2019-06-16 17:30 | NUR ---
Gps/Electrical Timing Device Calibrator- After episodes of anger yelling and cursing calling staff names , patient finally calmed down, ate dinner in the dinning room. Came asking for his prn med. for lower back pain, as well as cigarette, informed and reviewed , reiterate ,this is not not a smoking hosp. re offered his nicotine patch , refused.Still requesting to check again his belongings he thinks he has cigarettes , informed and emphasized , he cannot smoke here no matter what.
--- NOTE | 2019-06-16 20:00 | NUR ---
RECEIVED PATIENT IN THE HALLWAY, SITTING IN A WHEEL CHAIR. HE IS NOTED A/O X 3, ABLE TO TRANSFER VIA WHEELCHAIR. HE NOTED CALM UPON APPROACHED. HE DENIES SI/HI/VH/AH. HE IS ABLE TO VERBALIZED FEELINGS. HE IS NOTED NEEDY; ASKING FOR PAIN MEDICATION FOR HIS BACK PAIN. V/S STABLE AT THIS TIME. PATIENT IS REASSURED AND REDIRECTED. HE IS REASSURED FOR HIS SAFETY, SAFETY AND FALL PRECAUTION IN PLACE. WILL CONTINUE TO MONITOR.
[2019-06-16] MEDS: MELATONIN 3 MG TABLET PO SCH (20:07)
[2019-06-16] MEDS: SIMVASTATIN 10 MG TABLET PO SCH (20:07)
--- NOTE | 2019-06-16 20:15 | NUR ---
PATIENT WAS HELPED TO BED. 200CC OF URINE OUTPUT WAS REMOVED FROM HIS UROSTOMY BAG. WILL CONTINUE TO MONITOR.
[2019-06-16 20:59] VITALS: BP 97/65
--- NOTE | 2019-06-17 06:58 | NUR ---
PATIENT SLEPT FOR APPROX 6.30 HRS THROUGH THE NIGHT. 700CC URINE OUTPUT WAS REMOVED FROM HIS UROSTOMY BAG. PATIENT REFUSED BLOOD DRAWN, PATIENT REFUSED PROTONIX. MULTIPLE REDIRECTION GIVEN WITH [place]; HOWEVER, HE REFUSED. WILL CONTINUE TO MONITOR.
[2019-06-17] MEDS: GABAPENTIN 400 MG CAPSULE PO SCH ×2 (08:57→17:47)
[2019-06-17] MEDS: OXYCODONE HCL 10 MG TAB.SR.12H PO SCH ×2 (08:58→21:27)
[2019-06-17] MEDS: OLANZAPINE ZYDIS 5 MG TAB.RAPDIS PO SCH ×2 (08:58→17:59)
[2019-06-17] MEDS: CULTURELLE CAPSULE PO SCH ×2 (09:00→21:26)
[2019-06-17] MEDS: NICOTINE 14 MG/24HR PATCH TD SCH (09:00)
[2019-06-17] MEDS: CEphaleXIN 500 MG CAPSULE PO SCH ×2 (09:00→17:47)
[2019-06-17] MEDS: SENNOSIDES 1 TABLET PO SCH (09:00)
[2019-06-17] MEDS: DIVALPROEX 250 MG TABLET.DR PO SCH ×3 (09:00→17:00)
[2019-06-17] MEDS: ASCORBIC ACID 500 MG TABLET PO SCH ×2 (09:00→17:00)
[2019-06-17] MEDS: ASPIRIN EC 81 MG TABLET.DR PO SCH (09:00)
[2019-06-17] MEDS: MULTIVIT, IRON, MIN NO. 8, FA TABLET PO SCH (09:00)
[2019-06-17] MEDS: METOPROLOL TARTRATE 25 MG TABLET PO SCH ×2 (09:00→21:28)
[2019-06-17] MEDS: PANTOPRAZOLE SODIUM 40 MG TABLET.DR PO SCH (09:01)
--- NOTE | 2019-06-17 09:49 | NUR ---
Gps/Calender Operator Helper- Selective with am routine meds. preferred to take his pain meds. Sat at the edge of the bed during breakfast, encouraged to attend his group therapy this am, claimed tired and wants to sleep.
[2019-06-17] MEDS: HYDROCODONE/APAP 5-325MG TABLET PO PRN (17:53)
[2019-06-17 20:00] VITALS: BP 118/64
[2019-06-17] MEDS: SIMVASTATIN 10 MG TABLET PO SCH (21:26)
[2019-06-17] MEDS: MELATONIN 3 MG TABLET PO SCH (21:27)
[2019-06-18] MEDS: PANTOPRAZOLE SODIUM 40 MG TABLET.DR PO SCH (06:37)
--- NOTE | 2019-06-18 06:39 | NUR ---
Slept well. No further complaint presented. Urostomy intact and patent with QS urine output, cloudy yellow with a lot of sediments. Encourage increase oral fluid intake as tolerated. No fall/injury. All needs attended and met. Calm and cooperative with care. No significant event reported all night. Continue care as planned.
[2019-06-18 07:30] VITALS: BP 84/50
[2019-06-18] MEDS: DIVALPROEX 250 MG TABLET.DR PO SCH ×3 (09:00→17:00)
[2019-06-18] MEDS: GABAPENTIN 400 MG CAPSULE PO SCH ×2 (09:00→17:00)
[2019-06-18] MEDS: METOPROLOL TARTRATE 25 MG TABLET PO SCH ×2 (09:00→21:00)
[2019-06-18] MEDS: OLANZAPINE ZYDIS 5 MG TAB.RAPDIS PO SCH ×2 (09:00→17:00)
[2019-06-18] MEDS: SENNOSIDES 1 TABLET PO SCH (09:00)
[2019-06-18] MEDS: MULTIVIT, IRON, MIN NO. 8, FA TABLET PO SCH (09:00)
[2019-06-18] MEDS: NICOTINE 14 MG/24HR PATCH TD SCH (09:00)
[2019-06-18] MEDS: CULTURELLE CAPSULE PO SCH ×2 (09:45→20:39)
[2019-06-18] MEDS: CEphaleXIN 500 MG CAPSULE PO SCH ×2 (09:53→17:00)
[2019-06-18] MEDS: ASCORBIC ACID 500 MG TABLET PO SCH ×2 (09:55→17:00)
[2019-06-18] MEDS: ASPIRIN EC 81 MG TABLET.DR PO SCH (09:55)
[2019-06-18] MEDS: OXYCODONE HCL 10 MG TAB.SR.12H PO SCH ×2 (09:55→20:19)
[2019-06-18] MEDS: HYDROCODONE/APAP 5-325MG TABLET PO PRN (13:45)
[2019-06-18 15:10] VITALS: BP 95/59
[2019-06-18] MEDS: CLONAZEPAM 0.5 MG TABLET PO PRN (15:10)
--- NOTE | 2019-06-18 18:00 | NUR ---
Patient was given his PM medications in a cup. Pt asked to be given extra pain medication - [place]. Nurse said she can bring it after patient takes the medication in the cup. Pt took the cup looked at it and said "Oh, you want me to take this?, You bitch! I only will take [place]!" and threw the medication on the ground.
[2019-06-18 19:57] VITALS: BP 101/69
[2019-06-18] MEDS: MELATONIN 3 MG TABLET PO SCH (20:19)
[2019-06-18] MEDS: SIMVASTATIN 10 MG TABLET PO SCH (20:39)
[2019-06-19] MEDS: PANTOPRAZOLE SODIUM 40 MG TABLET.DR PO SCH (06:37)
[2019-06-19] MEDS: METOPROLOL TARTRATE 25 MG TABLET PO SCH ×2 (09:00→21:00)
[2019-06-19] MEDS: GABAPENTIN 400 MG CAPSULE PO SCH ×2 (09:00→16:03)
[2019-06-19] MEDS: MULTIVIT, IRON, MIN NO. 8, FA TABLET PO SCH (09:00)
[2019-06-19] MEDS: NICOTINE 14 MG/24HR PATCH TD SCH ×2 (09:00→13:28)
[2019-06-19] MEDS: OLANZAPINE ZYDIS 5 MG TAB.RAPDIS PO SCH ×2 (09:00→16:03)
[2019-06-19] MEDS: CULTURELLE CAPSULE PO SCH ×2 (09:00→21:00)
[2019-06-19] MEDS: DIVALPROEX 250 MG TABLET.DR PO SCH ×3 (09:00→16:03)
[2019-06-19] MEDS: CEphaleXIN 500 MG CAPSULE PO SCH ×2 (09:06→16:03)
[2019-06-19] MEDS: OXYCODONE HCL 10 MG TAB.SR.12H PO SCH ×2 (09:06→21:00)
[2019-06-19] MEDS: SENNOSIDES 1 TABLET PO SCH (09:06)
[2019-06-19] MEDS: ASPIRIN EC 81 MG TABLET.DR PO SCH (09:07)
[2019-06-19] MEDS: ASCORBIC ACID 500 MG TABLET PO SCH ×2 (09:07→16:03)
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
[2019-06-19] MEDS ORDERED: MINERAL OIL/PETROLATUM,WHITE 57 GM TUBE TOP PRN (13:00)
[2019-06-19] MEDS: HYDROCODONE/APAP 5-325MG TABLET PO PRN ×2 (13:27→19:34)
[2019-06-19] MEDS: CLONAZEPAM 0.5 MG TABLET PO PRN (15:42)
[2019-06-19 16:07] VITALS: BP 101/63
[2019-06-19] MEDS ORDERED: diphenhydrAMINE 1% CREAM 28.3 GM TUBE TP PRN (17:00)
--- NOTE | 2019-06-19 17:45 | NUR ---
GPS: Received patient AOx3, with urostomy bag attach with 700ml of clear yellow urine, remove urine from the bag, change urostomy bag , patient verbalizes of generalized pain , prn medication given , patient also verbalizes that he has itchiness in his back, called and spoke with Dr. Esteban with orders made and carried , patient made aware, visited by his sister during lunch time, patient kept safe at all time, patient ambulates on wheelchair and comfortably watching TV in the dining room, will continue monitor
--- NOTE | 2019-06-19 17:50 | NUR ---
urostomy bag emptied throughout the day with 900ml clear yellow urine output
[2019-06-19 19:59] VITALS: BP 115/74
[2019-06-19] MEDS: SIMVASTATIN 10 MG TABLET PO SCH (21:00)
[2019-06-19] MEDS: MELATONIN 3 MG TABLET PO SCH (21:00)
[2019-06-20] MEDS: PANTOPRAZOLE SODIUM 40 MG TABLET.DR PO SCH (06:21)
[2019-06-20 07:30] VITALS: BP 104/61
--- NOTE | 2019-06-20 08:12 | NUR ---
Discharge Note Patient [facility] be [facility] [[address] [place] [address]; [phone]]. Please arrange Ambulance transportation for the patient by 2pm. Patient is aware and agreeable with discharge plans. SW spoke with Reba [Computer Aide; [phone]] who stated that the patient is able to return today. Patient will follow up with Psychiatrist, Dr. Nowak and Cooker Meal, Dr. Douglas at [facility] [[address] [place] [address]; [phone]]. Patient was provided with referrals to [facility] ; [facility] ; [facility] [employer] Suicide Prevention [facility] .
[2019-06-20 09:00] VITALS: BP 104/61
[2019-06-20] MEDS: METOPROLOL TARTRATE 25 MG TABLET PO SCH (09:00)
[2019-06-20] MEDS: CULTURELLE CAPSULE PO SCH (09:00)
[2019-06-20] MEDS: ASPIRIN EC 81 MG TABLET.DR PO SCH (09:38)
[2019-06-20] MEDS: ASCORBIC ACID 500 MG TABLET PO SCH (09:38)
[2019-06-20] MEDS: DIVALPROEX 250 MG TABLET.DR PO SCH ×2 (09:39→12:14)
[2019-06-20] MEDS: MULTIVIT, IRON, MIN NO. 8, FA TABLET PO SCH (09:39)
[2019-06-20] MEDS: OLANZAPINE ZYDIS 5 MG TAB.RAPDIS PO SCH (09:39)
[2019-06-20] MEDS: SENNOSIDES 1 TABLET PO SCH (09:39)
[2019-06-20] MEDS: GABAPENTIN 400 MG CAPSULE PO SCH (09:39)
[2019-06-20] MEDS: CEphaleXIN 500 MG CAPSULE PO SCH (09:39)
[2019-06-20] MEDS: OXYCODONE HCL 10 MG TAB.SR.12H PO SCH (09:40)
[2019-06-20] MEDS: NICOTINE 14 MG/24HR PATCH TD SCH (09:40)
[2019-06-20] MEDS: HYDROCODONE/APAP 5-325MG TABLET PO PRN (12:14)
--- NOTE | 2019-06-20 14:49 | NUR ---
Discharge Note Patient will be discharged back to [facility] [[address] [place] [address]; [phone]]. Ambulance transportation was arrange . Patient is aware and agreeable with discharge plans. gave home medication and dischage instruction to the patient, spoke and gave [facility] [place], patient denies SI and HI, gave PRN medication for his chronic back pain, patient was calm and cooperative, in no distress during discharge, compliant with his medication, aware, will continue follow up in the facility as planned, patient DPOA aware of the Discharge all needs met
--- NOTE | 2019-06-20 14:58 | NUR ---
GPS: patient refused to have his skin to have picture, skin condition shows some rashes, in his back side
== END 2019-06-20 15:00 | DRG 885 ==
LOC: ER 21:35 → GPS 06-15 00:30
PROVIDERS: ADMIT Psychiatry & Neurology Psychiatry; ATTEND Registered Nurse
PROC: 0RSJXZZ Reposition Right Shoulder Joint, External Approach (ICD-10-PCS; principal; 2019-06-15)
DX: F39 Unspecified mood [affective] disorder (principal); N17.9 Acute kidney failure, unspecified; Z93.6 Other artificial openings of urinary tract status; N39.0 Urinary tract infection, site not specified; G82.20 Paraplegia, unspecified; E44.1 Mild protein-calorie malnutrition; G93.40 Encephalopathy, unspecified; F29 Unspecified psychosis not due to a substance or known physiological condition; Z87.440 Personal history of urinary (tract) infections; Z85.51 Personal history of malignant neoplasm of bladder; E78.5 Hyperlipidemia, unspecified; B96.89 Other specified bacterial agents as the cause of diseases classified elsewhere; I10 Essential (primary) hypertension; Z86.59 Personal history of other mental and behavioral disorders; Z79.899 Other long term (current) drug therapy; Z79.82 Long term (current) use of aspirin; Z87.820 Personal history of traumatic brain injury; K21.9 Gastro-esophageal reflux disease without esophagitis; Z85.828 Personal history of other malignant neoplasm of skin; Z87.11 Personal history of peptic ulcer disease; M24.311 Pathological dislocation of right shoulder, not elsewhere classified; M54.5 Low back pain; M79.671 Pain in right foot; R21 Rash and other nonspecific skin eruption; T14.90XS Injury, unspecified, sequela; W34.00XS Accidental discharge from unspecified firearms or gun, sequela; Z86.718 Personal history of other venous thrombosis and embolism; G89.4 Chronic pain syndrome; Z95.828 Presence of other vascular implants and grafts
CPT/HCPCS: 36415; 70030-TC; 71045; 73020; 73630; 80307; 84443; 85025; 87086; 93005; A4663; G0480; G0480-TC; G0500; J0696; J2358; J3490; J7030; J7060; Q0163

== ENCOUNTER 2021-11-12 12:07 | Inpatient (IN) | payer MEDICARE, OTHER ==
[~2021-11-12] VITALS: Ht 172.7 cm; Wt 70.3 kg
[~2021-11-12 12:07] MED LIST changes: -ALBU1.25 IH; +CLIN300C12 PO; +GABA300C PO; -MELA3TAB PO; +MELA3TAB41 PO; -OXCA300T4 PO; +OXYC10TA59 PO; -QUET25TA PO; -QUET50TA PO; -SERT25TA PO; -SIMV10TA6 PO; +SIMV10TA98 PO
--- NOTE | 2021-11-12 13:00 | NUR ---
Pt attempting to hit staff when we tried to insert saline lock and collect blood specimens. I was able to collect COVID and urine specimens which were sent to lab. Called lab for blood draw and they stated there is no block feeder on duty today.
[2021-11-12 13:09] LABS: *BILIRUBIN,URIN NEGATIVE (NEGATIVE); *BLOOD, URINE 3+ (NEGATIVE); *CLARITY,URINE CLOUDY (CLEAR); *COLOR,URINE Brown (YELLOW); *KETONES,URINE 1+ (NEGATIVE); *UROBILINOGEN,URINE 0.2 E.U./dl (NORMAL); LEUKOCYTE ESTERASE ,URINE 3+ (NEGATIVE); NITRITE, URINE POSITIVE (NEGATIVE); PH,URINE 8.5 (5.0-8.0); UGLUCOSE NEGATIVE (NEGATIVE)
[2021-11-12 13:21] LABS: *AMPHETAMINE, URINE NEGATIVE (NEGATIVE); *CANNABINOID, URINE NEGATIVE (NEGATIVE); *COCCAINE, URINE NEGATIVE (NEGATIVE); *OPIATE, URINE POSITIVE (NEGATIVE); *PHENCYCLIDINE SCREEN,URINE NEGATIVE (NEGATIVE)
--- NOTE | 2021-11-12 13:25 | NUR ---
Saline lock started to LAC with the assistance of two other staff members, blood specimens collected and sent to lab.
[2021-11-12 13:51] LABS: HEMATOCRIT 46.1 % (36.7-47.1); MEAN CORPUSCULAR HEMOGLOBIN 31.6 uug (23.8-33.4); MEAN CORPUSCULAR VOLUME 93.9 fL (73.0-96.2); PLATELET COUNT (AUTO) 372 K/uL (152-348)
[2021-11-12] MEDS ORDERED: CEFTRIAXONE 1 G in IV DEXTROSE 5% 50 ML IV ONE (14:00)
[2021-11-12] MEDS ORDERED: AZITHROMYCIN IV 500 MG in IV DEXTROSE 5% 250 ML IV ONE (14:00)
--- NOTE | 2021-11-12 14:00 | NUR ---
pt had lunch with good apetite.
[2021-11-12 14:04] LABS: CARBON DIOXIDE 31 mmol/L (21-32); CHLORIDE 102 mmol/L (98-107); CREATININE 1.2 mg/dL (0.6-1.3); GLUCOSE 127 mg/dL (74-106); POTASSIUM 4.5 mmol/L (3.5-5.1); UREA NITROGEN, BLOOD 25 mg/dL (7-18)
[2021-11-12 14:06] LABS: ETHANOL < 3 MG/DL (0-0)
[2021-11-12 14:08] LABS: RBC,URINE 50-80 /HPF (0-3); SQUAMOUS EPITHELIAL CELL,UR FEW /HPF (NONE SEEN); WBC,URINE 20-50 /HPF (0-3)
[2021-11-12 14:09] LABS: BACTERIA,URINE MANY /HPF (NONE SEEN); TRIPLE PHOSPHATE CRYSTAL,UR MODERATE /HPF (NONE SEEN)
[2021-11-12 14:20] LABS: ALANINE AMINOTRANSFERASE 12 U/L (16-63); ALKALINE PHOSPHATASE 91 U/L (50-136); ASPARTATE AMINOTRANSFERASE 17 U/L (15-37); BILIRUBIN,DIRECT 0.1 mg/dL (0.0-0.2); BILIRUBIN,TOTAL 0.7 mg/dL (0.2-1.0)
--- NOTE | 2021-11-12 14:41 | NUR ---
pt refusedblood draw for culture at this time.
--- NOTE | 2021-11-12 14:45 | NUR ---
pt agitated, says thathe wants to go home, notified.
[2021-11-12 14:46] LABS: THYROID STIMULATING HORMONE 0.496 mIU/mL (0.358-3.740)
[2021-11-12] MEDS ORDERED: LORAZEPAM 2 MG/1 ML VIAL ONE (15:12)
[2021-11-12] MEDS ORDERED: LORAZEPAM 2 MG/1 ML VIAL IV ONE (15:15)
[2021-11-12] MEDS ORDERED: AZITHROMYCIN 500MG/ D5W 250ML IVPB **ER PYXIS ONLY IV ONE (15:28)
[2021-11-12] MEDS ORDERED: CEFTRIAXONE /D5W 50ML IVPB **ER PYXIS IV ONE (15:29)
[2021-11-12] MEDS ORDERED: ZIPRASIDONE MESYLATE 20 MG VIAL IM ONE ×2 (16:00→16:17)
[2021-11-12] MEDS ORDERED: ADENOSINE 6 MG/2 ML SYR IV ONE ×4 (16:45→17:15)
[2021-11-12] MEDS ORDERED: IV NORMAL SALINE 1000 ML BAG IV ONE (16:45)
--- NOTE | 2021-11-12 16:59 | NUR ---
svt noted on monitor, checked on pt, pt awake, denies any cp or sob asking to smoke cigarette. er md at bedside to push the adenisine.
--- NOTE | 2021-11-12 18:00 | NUR ---
pt resting, arousable, no sign of distress. sinus with pacs on bedside monitor.
[2021-11-12] MEDS ORDERED: GLUC1KIT IM (18:22)
[2021-11-12] MEDS ORDERED: OLAN2.5T3 PO (18:22)
[2021-11-12] MEDS ORDERED: DOXY-326 PO (18:22)
[2021-11-12] MEDS ORDERED: DEXT50VI3 IV (18:22)
[2021-11-12] MEDS ORDERED: MAGN400O6 PO (18:22)
[2021-11-12] MEDS ORDERED: ACETAMINOPHEN 325 MG TABLET-SA PATIENTS-PAIN ONLY PO PRN (20:15)
[2021-11-12] MEDS ORDERED: MAGNESIUM HYDROXIDE 30 ML LIQUID UDC PO PRN (20:15)
[2021-11-12] MEDS ORDERED: ACETAMINOPHEN 325 MG TABLET PO PRN ×2 (20:15)
[2021-11-12] MEDS ORDERED: HYDROCODONE/APAP 5-325MG TABLET PO PRN (20:15)
[2021-11-12] MEDS ORDERED: ENOXAPARIN SODIUM 40 MG/0.4 ML DISP.SYRIN SQ ONE (20:48)
[2021-11-12] MEDS ORDERED: MELATONIN 3 MG TABLET ONE (20:48)
[2021-11-12] MEDS: ENOXAPARIN SODIUM 40 MG/0.4 ML DISP.SYRIN SQ SCH (20:49)
[2021-11-12] MEDS: SIMVASTATIN 10 MG TABLET PO SCH (20:51)
[2021-11-12] MEDS: MELATONIN 3 MG TABLET PO SCH (20:51)
[2021-11-12] MEDS: OLANZAPINE 2.5 MG TABLET PO SCH (20:51)
[2021-11-12] MEDS ORDERED: OLANZAPINE 5 MG TABLET ONE (20:51)
[2021-11-12] MEDS ORDERED: SIMVASTATIN 10 MG TABLET ONE (20:51)
[2021-11-12] MEDS: METOPROLOL TARTRATE 25 MG TABLET PO SCH (20:52)
[2021-11-12] MEDS ORDERED: Medication Not On Formulary EA (Oxycodone Hcl (Oxycontin) 10 MG) PO SCH (21:00)
[2021-11-12] MEDS ORDERED: VANCOMYCIN IV 200 ML ONE (21:04)
[2021-11-12] MEDS: VANCOMYCIN IV 1,000 MG in IV DEXTROSE 5% 250 ML IV SCH (21:05)
--- NOTE | 2021-11-12 22:00 | NUR ---
Received patient via gurney, admitted to telemetry under the care of Dr. Douglas with sepsis as his admitting diagnosis. Patient is AAOx2-3, with episodes of aggression and non-compliance with plan of care. Patient is full code, NKA, and on cardiac diet. Patient denies SOB, chest pain or dizziness. On 2L O2, saturating 97%. Sinus rhythm on tele monitor. Patient denies SOB, chest pain or dizziness at this time. Received patient with urostomy and patricio catheter draining clear yellow urine. IV reinserted on R wrist, running 0.9% N.S. Initial nursing assessment. Skin problems noted on chart, wound consult ordered. Pt's belongings list rechecked. Oriented oatient to room, bed and call light button. Safety and comfort measures initiated. Will continue to monitor.
[2021-11-12 23:00] VITALS: BP 108/68
[2021-11-12] MEDS: IV NS 1000 ML 1,000 ML IV PRN (23:01)
[2021-11-12] MEDS ORDERED: PIPERACILLIN/TAZOBACTAM/D5W 100 ML IV ONE (23:53)
[2021-11-13] MEDS: OXYCODONE HCL 10 MG TAB.SR.12H PO SCH ×3 (00:06→21:00)
[2021-11-13] MEDS: PIPERACILLIN SODIUM/TAZOBACTAM 3.375 G in IV DEXTROSE 5% 50 ML IV SCH ×4 (00:07→21:11)
[2021-11-13] MEDS ORDERED: PIPERACILLIN/TAZOBACTAM/D5W 50 ML IV ONE (05:51)
[2021-11-13 06:08] VITALS: BP 98/56
--- NOTE | 2021-11-13 06:30 | NUR ---
Patient slept through the night with no complaints. Still combative and aggressive with nursing interventions. IVF on right wrist running well. Patient refused to take protonix and refused wound culture. Collection bottle at bedside. On tele monitor showing sinus rhythm. On 2L O2, saturating 98%. Safety precautions maintained. Will endorse to day shift.
[2021-11-13] MEDS: PANTOPRAZOLE SODIUM 40 MG TABLET.DR PO SCH (06:59)
[2021-11-13] MEDS: SENNOSIDES 1 TABLET PO SCH (08:11)
[2021-11-13] MEDS: ASPIRIN EC 81 MG TABLET.DR PO SCH (08:11)
[2021-11-13] MEDS: GABAPENTIN 300 MG CAPSULE PO SCH ×3 (08:11→16:18)
[2021-11-13] MEDS: OLANZAPINE 2.5 MG TABLET PO SCH ×2 (08:11→21:00)
[2021-11-13] MEDS: ASCORBIC ACID 500 MG TABLET PO SCH ×2 (08:11→16:18)
[2021-11-13] MEDS: METOPROLOL TARTRATE 25 MG TABLET PO SCH ×2 (08:12→21:00)
--- NOTE | 2021-11-13 08:30 | NUR ---
offered breakfast, patient refused x3.
[2021-11-13] MEDS ORDERED: Medication Not On Formulary EA (Multivitamins W-Minerals (Multivitamin With Minerals) 1 PO SCH (09:00)
--- NOTE | 2021-11-13 09:30 | NUR ---
offered morning care, patient refused x3, explained risk and benefits, patient yelled "get out"
--- NOTE | 2021-11-13 10:00 | NUR ---
patient refused morning labs and morning imaging studies, explained risk and benefits x3, continue to refused.
--- NOTE | 2021-11-13 12:09 | NUR ---
spoke with araceli SCHAFER all questions answered.
[2021-11-13] MEDS: VANCOMYCIN IV 1,000 MG in IV DEXTROSE 5% 250 ML IV SCH (13:25)
[2021-11-13] MEDS: IV NS 1000 ML 1,000 ML IV PRN (14:05)
--- NOTE | 2021-11-13 20:12 | NUR ---
Patient resting in bed comfortably in no apparent distress noted.On 02 at 2LPM via NC.Patient is not cooperative,easily gets agitated. Refused meds.Patient stated later he will take his medication.Monitor closely.Call light with in reach.
[2021-11-13] MEDS: MELATONIN 3 MG TABLET PO SCH (21:00)
[2021-11-13] MEDS: SIMVASTATIN 10 MG TABLET PO SCH (21:00)
[2021-11-13] MEDS: ENOXAPARIN SODIUM 40 MG/0.4 ML DISP.SYRIN SQ SCH (21:00)
--- NOTE | 2021-11-13 22:11 | NUR ---
Patient continue to refused his medication. Continue to get agitated with outburst of profanity when approached.Provided calm environment.Risk and benefits explained.
[2021-11-14] MEDS: VANCOMYCIN IV 1,000 MG in IV DEXTROSE 5% 250 ML IV SCH ×2 (04:27→20:55)
[2021-11-14] MEDS: PIPERACILLIN SODIUM/TAZOBACTAM 3.375 G in IV DEXTROSE 5% 50 ML IV SCH ×3 (06:09→22:24)
[2021-11-14] MEDS: PANTOPRAZOLE SODIUM 40 MG TABLET.DR PO SCH (06:29)
[2021-11-14] MEDS: METOPROLOL TARTRATE 25 MG TABLET PO SCH ×2 (09:00→20:58)
[2021-11-14] MEDS: SENNOSIDES 1 TABLET PO SCH (09:34)
[2021-11-14] MEDS: OLANZAPINE 2.5 MG TABLET PO SCH ×2 (09:34→20:55)
[2021-11-14] MEDS: OXYCODONE HCL 10 MG TAB.SR.12H PO SCH ×2 (09:35→20:55)
[2021-11-14] MEDS: GABAPENTIN 300 MG CAPSULE PO SCH ×3 (09:35→17:59)
[2021-11-14] MEDS: ASPIRIN EC 81 MG TABLET.DR PO SCH (09:38)
[2021-11-14] MEDS: ASCORBIC ACID 500 MG TABLET PO SCH ×2 (09:38→17:57)
[2021-11-14 10:00] VITALS: BP 100/62
[2021-11-14 12:14] VITALS: BP 105/70
[2021-11-14] MEDS: IV NS 1000 ML 1,000 ML IV PRN (12:16)
[2021-11-14 16:08] VITALS: BP 117/73
--- NOTE | 2021-11-14 19:00 | NUR ---
States feels little dizzy, & funny feeling in chest. Had SVT 14 secs with rate of 210.
--- NOTE | 2021-11-14 19:31 | NUR ---
States feels better now. Watching TV.
--- NOTE | 2021-11-14 19:45 | NUR ---
Received patient sitting at the edge of the bed. AAOX2-3, with periods of aggression. On tele monitor, with occasional PACs with HR of 69bpm. On 2L O2 via NC, 97%. IV on R wrist, gauge 20, running 0.9%, NS at 60cc/hr. With Urostomy on R side draining cloudy yellow urine. Abscess pus at R U back collected and sent to lab. Safety and comfort measures initiated. Call light button and frequently used items within reach. Will continue to monitor.
[2021-11-14 20:00] VITALS: BP 121/77
--- NOTE | 2021-11-14 20:00 | NUR ---
Scheduled Vancomycin trough wasn't done since there wasn't a plant breeder available since 18:00.
[2021-11-14] MEDS: SIMVASTATIN 10 MG TABLET PO SCH (20:55)
[2021-11-14] MEDS: MELATONIN 3 MG TABLET PO SCH (20:56)
[2021-11-14] MEDS: ENOXAPARIN SODIUM 40 MG/0.4 ML DISP.SYRIN SQ SCH (21:06)
[2021-11-15] MEDS: IV NS 1000 ML 1,000 ML IV PRN (04:30)
[2021-11-15 05:12] VITALS: BP 130/68
[2021-11-15] MEDS: PIPERACILLIN SODIUM/TAZOBACTAM 3.375 G in IV DEXTROSE 5% 50 ML IV SCH (06:21)
--- NOTE | 2021-11-15 06:58 | NUR ---
Patient slept through the night, with episodes of aggression with nursing interventions. On tele monitor, sinus bradycardia with occassional a-fib, HR of 58bpm. IV on R wrist, gauge 20, running 0.9%, NS at 60cc/hr, infusing well. With Urostomy on R side draining cloudy yellow urine. Refused morning PO medication. Safety and comfort measures maintained. Will endorse to day shift.
[2021-11-15] MEDS: PANTOPRAZOLE SODIUM 40 MG TABLET.DR PO SCH (07:00)
[2021-11-15] MEDS: OLANZAPINE 2.5 MG TABLET PO SCH ×3 (09:00→20:01)
[2021-11-15] MEDS: ASPIRIN EC 81 MG TABLET.DR PO SCH ×2 (09:00→12:14)
[2021-11-15] MEDS: SENNOSIDES 1 TABLET PO SCH ×2 (09:00→12:13)
[2021-11-15] MEDS: ASCORBIC ACID 500 MG TABLET PO SCH ×5 (09:00→18:29)
[2021-11-15] MEDS: GABAPENTIN 300 MG CAPSULE PO SCH ×4 (09:00→18:29)
[2021-11-15] MEDS: OXYCODONE HCL 10 MG TAB.SR.12H PO SCH ×2 (09:00→20:01)
[2021-11-15] MEDS: METOPROLOL TARTRATE 25 MG TABLET PO SCH (09:00)
--- NOTE | 2021-11-15 09:44 | NUR ---
in bed wilth eyes closed, called name and answered "yes" but didnt open eyes, told of the time, asked if BP can be taken and informed of breakfast and meds to take, states "no", didnt want to be disturbed
--- NOTE | 2021-11-15 11:00 | NUR ---
again tried to take VS and reapply tele pads and offer refused am meds but refused again, stated "leave me alone"
[2021-11-15] MEDS: CEFEPIME HCL 1 G in IV DEXTROSE 5% 50 ML IV SCH (11:35)
--- NOTE | 2021-11-15 12:00 | NUR ---
Informed Dr Nugent of pts' refusal of am meds, vs taken, spoke to pt and to friend Konrad, pt agreed, meds given vs taken, tele pad reapplied and lab here to draw am labs, fed by friend-ate good
[2021-11-15 12:19] VITALS: BP 114/72
[2021-11-15 12:29] LABS: HEMATOCRIT 40.5 % (36.7-47.1); MEAN CORPUSCULAR HEMOGLOBIN 31.6 uug (23.8-33.4); MEAN CORPUSCULAR VOLUME 93.1 fL (73.0-96.2); PLATELET COUNT (AUTO) 307 K/uL (152-348)
[2021-11-15 12:49] LABS: BILIRUBIN,TOTAL 0.7 mg/dL (0.2-1.0); CREATININE 1.3 mg/dL (0.6-1.3); MAGNESIUM 1.8 mg/dL (1.8-2.4); PHOSPHOROUS 2.6 mg/dL (2.5-4.9); POTASSIUM 3.7 mmol/L (3.5-5.1); TOTAL PROTEIN, SERUM 6.8 g/dL (6.4-8.2)
--- NOTE | 2021-11-15 13:00 | NUR ---
iv site leaking, tried but unsuccessful, agreed for midline, with friend Konrad convincing him
--- NOTE | 2021-11-15 16:30 | NUR ---
refused vs taken, screams "get out of my room", refused meds, very rude
--- NOTE | 2021-11-15 18:00 | NUR ---
no distress noted, ate dinner and ice water given, needs attended, call light within reach
--- NOTE | 2021-11-15 19:30 | NUR ---
Received pt lying in bed. Alert and oriented to name, place and time. On room air saturating at 92%. Educated pt on importance of keeping NC in for oxygen but is non compliant. Easily agitated. No signs of acute distress. Urostomy intact and draining. Belongings and call lights within reach. Safety measures initiated.
[2021-11-15] MEDS: MELATONIN 3 MG TABLET PO SCH (20:01)
[2021-11-15] MEDS: ENOXAPARIN SODIUM 40 MG/0.4 ML DISP.SYRIN SQ SCH (20:02)
[2021-11-15] MEDS: SIMVASTATIN 10 MG TABLET PO SCH (20:02)
[2021-11-15 20:41] VITALS: BP 108/68
[2021-11-16 04:50] VITALS: BP 106/68
[2021-11-16] MEDS: PANTOPRAZOLE SODIUM 40 MG TABLET.DR PO SCH (06:44)
--- NOTE | 2021-11-16 06:45 | NUR ---
Slept throughout the night. On 2L NC saturating at 100%. No signs of acute distress. DOLORES midline intact and running NS at 60 mls/hr. No signs of infiltration or phlebitis. Urostomy intact, clear yellow urine draining. PM medications given. Non-compliant with am medication. Informed pt risks and benefits of medication. Refused Pantoprazole 40 mg PO. Belongings and call light within reach. Safety measures maintained.
[2021-11-16] MEDS: OLANZAPINE 2.5 MG TABLET PO SCH (09:00)
[2021-11-16] MEDS: ASPIRIN EC 81 MG TABLET.DR PO SCH (09:00)
[2021-11-16] MEDS: OXYCODONE HCL 10 MG TAB.SR.12H PO SCH (09:00)
[2021-11-16] MEDS: SENNOSIDES 1 TABLET PO SCH (09:00)
[2021-11-16] MEDS: GABAPENTIN 300 MG CAPSULE PO SCH ×3 (09:00→16:19)
[2021-11-16] MEDS: ASCORBIC ACID 500 MG TABLET PO SCH ×2 (09:00→16:19)
[2021-11-16] MEDS: CEFEPIME HCL 1 G in IV DEXTROSE 5% 50 ML IV SCH (09:35)
[2021-11-16] MEDS: IV NS 1000 ML 1,000 ML IV PRN (09:40)
--- NOTE | 2021-11-16 10:04 | NUR ---
Patient refused am vitals and am medications. Educated pt multiple times on risks and benefits of medication and care. Understands the benefits and risks but still refused.
--- NOTE | 2021-11-16 11:10 | NUR ---
WOUND CARE CONSULT: PT ADAMANTLY SCREAMED NO WHEN ASKED IF HE WOULD ALLOW SKIN ASSESSMENT. REVIEWED CHART, NURSING DOCUMENTATION AND PHOTOS WHICH INDICATE LOWER BACK SCARRING, WOUND TO UPPER BACK (S/P I&D) AND LOWER LEG DRY SCABS, ALL PRESENT ON ADMISSION. RECOMMENDATIONS MADE FOR SKIN PROTECTION AND WOUND CARE. DISCUSSED WITH NURSING STAFF. MD IN AGREEMENT WITH PLAN OF CARE.
[2021-11-16] MEDS ORDERED: PANT40TA49 PO (11:14)
[2021-11-16] MEDS ORDERED: CEFE1VIA3 IV (11:14)
[2021-11-16] MEDS ORDERED: Z GUARD REMEDY PASTE 57 GM TUBE TOP PRN (11:15)
[2021-11-16 12:28] VITALS: BP 90/50
--- NOTE | 2021-11-16 13:30 | NUR ---
Patient is compliant with medication and care at this time. Tolerated Gabapentin medication.
[2021-11-16 16:06] LABS: A/G RATIO 0.9 (0.7-1.7); ALBUMIN 2.8 g/dL (2.9-4.4); ALPHA-1-GLOBULIN 0.4 g/dL (0.0-0.4); BETA GLOBULIN 0.7 g/dL (0.7-1.3); GAMMA GLOBULIN 1.1 g/dL (0.4-1.8); GLOBULIN, TOTAL 3.1 g/dL (2.2-3.9); M-SPIKE Not Observed g/dL (Not Observed)
--- NOTE | 2021-11-16 19:10 | NUR ---
Discharge pt to [facility] via ambulance. Alert and oriented to name, place and time. Forgetful at times. On 2L NC saturating at 96%. No signs of acute distress noted. Urostomy intact. DOLORES midline intact and patent. Discharge packet completed.
[2021-11-16] MEDS ORDERED: CEFEPIME HCL 1 G in IV DEXTROSE 5% 50 ML IV SCH (21:00)
== END 2021-11-16 19:25 | DRG 871 ==
LOC: ER 12:07 → TRANSITION 15:07 → TELE3 21:53 → MEDSURG3 11-15 17:42
PROVIDERS: ADMIT Internal Medicine; ATTEND Internal Medicine
PROC: 05HA33Z Insertion of Infusion Device into Left Brachial Vein, Percutaneous Approach (ICD-10-PCS; principal; 2021-11-15)
DX: A41.9 Sepsis, unspecified organism (principal); G92.8 Other toxic encephalopathy; J69.0 Pneumonitis due to inhalation of food and vomit; N17.0 Acute kidney failure with tubular necrosis; E43 Unspecified severe protein-calorie malnutrition; N39.0 Urinary tract infection, site not specified; I47.1 Supraventricular tachycardia; D68.69 Other thrombophilia; I11.9 Hypertensive heart disease without heart failure; R73.9 Hyperglycemia, unspecified; R13.10 Dysphagia, unspecified; Z74.09 Other reduced mobility; Z85.51 Personal history of malignant neoplasm of bladder; F03.90 Unspecified dementia, unspecified severity, without behavioral disturbance, psychotic disturbance, mood disturbance, and anxiety; Z91.14 Patient's other noncompliance with medication regimen; M19.90 Unspecified osteoarthritis, unspecified site; Z99.3 Dependence on wheelchair; Z87.820 Personal history of traumatic brain injury; Z93.6 Other artificial openings of urinary tract status; N13.9 Obstructive and reflux uropathy, unspecified; Z20.822 Contact with and (suspected) exposure to COVID-19
CPT/HCPCS: 36415; 70030-TC; 71045; 83735; 83970; 84100; 84155; 84165; 84443; 85025; 87040; 87070; 87077; 87086; 93005; A4663; G0378; G0480; J0153; J0456; J0692; J0696; J1650; J2060; J2543; J3370; J3486; J7030; J7060

== ENCOUNTER 2022-01-22 16:36 | Inpatient (IN) | payer MEDICARE, OTHER ==
[~2022-01-22] VITALS: Ht 160 cm; Wt 60.8 kg
[~2022-01-22 16:36] MED LIST changes: -CLIN300C12 PO; +DEXT50VI3 IV; +GLUC1KIT IM; +MAGN400O6 PO; -METO25TA6 PO; +OLAN2.5T3 PO; -PANT40TA2 PO; +PANT40TA49 PO; -PIPE3.379 IV; -SIMV10TA98 PO
[2022-01-22] MEDS ORDERED: ALBU0.63 IH (17:12)
[2022-01-22] MEDS ORDERED: LORAZEPAM 2 MG/1 ML VIAL IM ONE (17:45)
[2022-01-22] MEDS ORDERED: LORAZEPAM 2 MG/1 ML VIAL ONE (17:47)
[2022-01-22 18:04] LABS: *BILIRUBIN,URIN NEGATIVE (NEGATIVE); *BLOOD, URINE 2+ (NEGATIVE); *CLARITY,URINE TURBID (CLEAR); *COLOR,URINE YELLOW (YELLOW); *KETONES,URINE 1+ (NEGATIVE); *UROBILINOGEN,URINE 0.2 E.U./dl (NORMAL); LEUKOCYTE ESTERASE ,URINE 3+ (NEGATIVE); NITRITE, URINE NEGATIVE (NEGATIVE); PH,URINE >=9.0 (5.0-8.0); UGLUCOSE NEGATIVE (NEGATIVE)
[2022-01-22 18:19] LABS: BACTERIA,URINE MODERATE /HPF (NONE SEEN); SQUAMOUS EPITHELIAL CELL,UR FEW /HPF (NONE SEEN); WBC,URINE 20-50 /HPF (0-3)
[2022-01-22 18:20] LABS: TRIPLE PHOSPHATE CRYSTAL,UR MANY /HPF (NONE SEEN); URINE AMORPHOUS PHOSPHATES MANY /HPF
[2022-01-22 19:21] LABS: HEMATOCRIT 46.5 % (36.7-47.1); MEAN CORPUSCULAR HEMOGLOBIN 31.6 uug (23.8-33.4); MEAN CORPUSCULAR VOLUME 93.3 fL (73.0-96.2); PLATELET COUNT (AUTO) 373 K/uL (152-348)
[2022-01-22] MEDS ORDERED: levoFLOXacin 750MG/D5W 150 ML IV ONE ×2 (20:00→22:07)
[2022-01-22] MEDS ORDERED: PIPERACILLIN SODIUM/TAZOBACTAM 3.375 G in IV DEXTROSE 5% 50 ML IV ONE (20:00)
[2022-01-22] MEDS ORDERED: IV NORMAL SALINE 1000 ML BAG IV ONE (20:30)
[2022-01-22] MEDS ORDERED: ACETAMINOPHEN 325 MG TABLET PO PRN (20:45)
[2022-01-22] MEDS ORDERED: ONDANSETRON 4 MG/2 ML VIAL IV PRN (20:45)
[2022-01-22] MEDS ORDERED: REMEDY ESSENTIAL ZINC PASTE 113 GM TP PRN (20:45)
[2022-01-22] MEDS ORDERED: MORPHINE SULFATE 2 MG/1 ML DISP.SYRIN IV PRN (20:45)
[2022-01-22 20:57] LABS: CHLORIDE 102 mmol/L (98-107); POTASSIUM 4.5 mmol/L (3.5-5.1)
[2022-01-22 20:58] LABS: CARBON DIOXIDE 28 mmol/L (21-32); GLUCOSE 141 mg/dL (74-106)
[2022-01-22 20:59] LABS: CREATININE 1.3 mg/dL (0.6-1.3); UREA NITROGEN, BLOOD 35 mg/dL (7-18)
[2022-01-22] MEDS ORDERED: CEFEPIME HCL 1 G in IV DEXTROSE 5% 50 ML IV SCH (21:00)
[2022-01-22 21:01] LABS: ALKALINE PHOSPHATASE 90 U/L (50-136); ASPARTATE AMINOTRANSFERASE 17 U/L (15-37); BILIRUBIN,DIRECT 0.3 mg/dL (0.0-0.2)
[2022-01-22 21:02] LABS: ALANINE AMINOTRANSFERASE 12 U/L (16-63)
[2022-01-22 21:03] LABS: TOTAL PROTEIN, SERUM 7.4 g/dL (6.4-8.2)
[2022-01-22] MEDS ORDERED: PIPERACILLIN/TAZOBACTAM/D5W 50 ML IV ONE ×2 (21:27→21:30)
[2022-01-23 01:00] VITALS: BP 118/79
[2022-01-23] MEDS: ENOXAPARIN SODIUM 40 MG/0.4 ML DISP.SYRIN SQ SCH ×2 (01:56→20:42)
[2022-01-23 04:50] VITALS: BP 130/68
[2022-01-23] MEDS: IV NS 1000 ML 1,000 ML IV PRN ×2 (05:14→17:55)
[2022-01-23] MEDS: ALBUTEROL SULFATE 1.25 MG/3 ML NEBU NEB SCH ×3 (07:35→20:22)
[2022-01-23] MEDS ORDERED: MAGNESIUM HYDROXIDE 30 ML LIQUID UDC PO PRN (08:00)
[2022-01-23] MEDS ORDERED: HOME MED MISCELLANEOUS XX SCH ×3 (08:00)
[2022-01-23] MEDS ORDERED: ACETAMINOPHEN 325 MG TABLET-SA PATIENTS-PAIN ONLY PO PRN (08:00)
[2022-01-23] MEDS ORDERED: POLYVINYL ALCOHOL OPHT DROPS 15 ML BOTTLE EACHEYE PRN (08:15)
[2022-01-23] MEDS: PANTOPRAZOLE SODIUM 40 MG VIAL IV SCH (08:57)
[2022-01-23] MEDS: ASPIRIN EC 81 MG TABLET.DR PO SCH (08:59)
[2022-01-23] MEDS: SENNOSIDES 1 TABLET PO SCH (09:00)
[2022-01-23] MEDS: GABAPENTIN 300 MG CAPSULE PO SCH ×2 (09:00→17:00)
[2022-01-23] MEDS ORDERED: OLANZAPINE 2.5 MG TABLET PO SCH (09:00)
[2022-01-23] MEDS: MULTIVITAMINS,THERAPEUTIC TABLET PO SCH (09:00)
[2022-01-23] MEDS: OLANZAPINE 5 MG TABLET PO SCH ×2 (09:00→20:42)
[2022-01-23] MEDS ORDERED: OLANZAPINE 10 MG VIAL IM ONE (09:15)
[2022-01-23 12:00] VITALS: BP 139/94
[2022-01-23] MEDS ORDERED: CEFEPIME HCL 1 G in IV DEXTROSE 5% 50 ML IV SCH (14:00)
[2022-01-23 16:00] VITALS: BP 113/69
[2022-01-23 17:24] LABS: *BILIRUBIN,URIN NEGATIVE (NEGATIVE); *BLOOD, URINE 1+ (NEGATIVE); *CLARITY,URINE CLEAR (CLEAR); *COLOR,URINE YELLOW (YELLOW); *KETONES,URINE NEGATIVE (NEGATIVE); *UROBILINOGEN,URINE 0.2 E.U./dl (NORMAL); LEUKOCYTE ESTERASE ,URINE 3+ (NEGATIVE); NITRITE, URINE NEGATIVE (NEGATIVE); UGLUCOSE NEGATIVE (NEGATIVE)
[2022-01-23 17:35] LABS: *CREATININE,URINE 19.6 mg/dL (30-125); *URINE TOTAL PROTEIN RANDOM 24.7 mg/dL (<150/24HR)
[2022-01-23] MEDS: PIPERACILLIN SODIUM/TAZOBACTAM 3.375 G in IV DEXTROSE 5% 50 ML IV SCH (17:46)
[2022-01-23 18:17] LABS: BACTERIA,URINE FEW /HPF (NONE SEEN); SQUAMOUS EPITHELIAL CELL,UR FEW /HPF (NONE SEEN); WBC,URINE 50-80 /HPF (0-3)
[2022-01-23 20:15] VITALS: BP 125/77
[2022-01-23] MEDS: DOXYCYCLINE HYCLATE IV 100 MG in IV DEXTROSE 5% 100 ML IV SCH (20:40)
[2022-01-23] MEDS ORDERED: levoFLOXacin 500 MG/D5W 100ML PIGGYBACK IV SCH (22:00)
[2022-01-24] MEDS: PIPERACILLIN SODIUM/TAZOBACTAM 3.375 G in IV DEXTROSE 5% 50 ML IV SCH ×5 (00:03→23:43)
[2022-01-24] MEDS: ALBUTEROL SULFATE 1.25 MG/3 ML NEBU NEB SCH ×4 (00:45→20:20)
[2022-01-24 04:09] VITALS: BP 106/58
[2022-01-24] MEDS: OLANZAPINE 5 MG TABLET PO SCH ×3 (09:00→21:38)
[2022-01-24] MEDS: SENNOSIDES 1 TABLET PO SCH ×2 (09:00→10:53)
[2022-01-24] MEDS: GABAPENTIN 300 MG CAPSULE PO SCH ×3 (09:00→17:00)
[2022-01-24] MEDS: MULTIVITAMINS,THERAPEUTIC TABLET PO SCH ×2 (09:00→10:54)
[2022-01-24] MEDS: ASPIRIN EC 81 MG TABLET.DR PO SCH ×2 (09:00→10:53)
[2022-01-24] MEDS: PANTOPRAZOLE SODIUM 40 MG VIAL IV SCH (09:22)
[2022-01-24] MEDS: DOXYCYCLINE HYCLATE IV 100 MG in IV DEXTROSE 5% 100 ML IV SCH ×2 (09:24→21:38)
[2022-01-24 11:16] LABS: HEMATOCRIT 46.5 % (36.7-47.1); MEAN CORPUSCULAR HEMOGLOBIN 31.1 uug (23.8-33.4); MEAN CORPUSCULAR VOLUME 93.4 fL (73.0-96.2); PLATELET COUNT (AUTO) 391 K/uL (152-348)
[2022-01-24 11:26] LABS: BILIRUBIN,TOTAL 0.9 mg/dL (0.2-1.0); CREATININE 1.3 mg/dL (0.6-1.3); MAGNESIUM 1.9 mg/dL (1.8-2.4); PHOSPHOROUS 3.2 mg/dL (2.5-4.9); TOTAL PROTEIN, SERUM 6.9 g/dL (6.4-8.2)
[2022-01-24 11:54] VITALS: BP 100/65
[2022-01-24] MEDS: GLUCERNA SHAKE VANILLA 237 ML CAN PO SCH ×2 (14:00→22:04)
[2022-01-24 16:00] VITALS: BP 92/65
[2022-01-24] MEDS: IV NS 1000 ML 1,000 ML IV PRN (17:41)
[2022-01-24] MEDS: HYDROCODONE/APAP 5-325MG TABLET PO PRN (18:41)
[2022-01-24 20:00] VITALS: BP 96/75
[2022-01-24] MEDS: ENOXAPARIN SODIUM 40 MG/0.4 ML DISP.SYRIN SQ SCH (21:00)
[2022-01-25] MEDS: ALBUTEROL SULFATE 1.25 MG/3 ML NEBU NEB SCH ×4 (01:27→19:53)
[2022-01-25] MEDS: PIPERACILLIN SODIUM/TAZOBACTAM 3.375 G in IV DEXTROSE 5% 50 ML IV SCH (05:12)
[2022-01-25] MEDS ORDERED: DOXYCYCLINE HYCLATE IV 100 MG in IV DEXTROSE 5% 100 ML IV ONE (06:30)
[2022-01-25] MEDS: SENNOSIDES 1 TABLET PO SCH (08:03)
[2022-01-25] MEDS: MULTIVITAMINS,THERAPEUTIC TABLET PO SCH (08:03)
[2022-01-25] MEDS: ASPIRIN EC 81 MG TABLET.DR PO SCH (08:03)
[2022-01-25] MEDS: PANTOPRAZOLE SODIUM 40 MG VIAL IV SCH (08:03)
[2022-01-25] MEDS: OLANZAPINE 5 MG TABLET PO SCH ×2 (08:03→21:06)
[2022-01-25] MEDS: GABAPENTIN 300 MG CAPSULE PO SCH ×2 (08:03→16:47)
[2022-01-25] MEDS: GLUCERNA SHAKE VANILLA 237 ML CAN PO SCH ×3 (10:00→21:13)
[2022-01-25] MEDS: IV NS 1000 ML 1,000 ML IV PRN (10:42)
[2022-01-25 12:09] VITALS: BP_SYST 98; BP_DIAS 55; BP_DIAS 63
[2022-01-25] MEDS ORDERED: PIPERACILLIN SODIUM/TAZOBACTAM 3.375 G in IV DEXTROSE 5% 100 ML IV SCH (14:00)
[2022-01-25 15:25] VITALS: BP 104/58
[2022-01-25] MEDS ORDERED: DOXYCYCLINE HYCLATE IV 100 MG in IV DEXTROSE 5% 100 ML IV SCH (16:00)
[2022-01-25] MEDS ORDERED: OLANZAPINE 10 MG VIAL IM PRN (18:00)
[2022-01-25 20:43] VITALS: BP 109/70
[2022-01-25] MEDS: CEFTRIAXONE 1 G in IV DEXTROSE 5% 50 ML IV SCH (21:06)
[2022-01-25] MEDS: DIVALPROEX 125 MG TABLET.DR PO SCH (21:06)
[2022-01-25] MEDS: HYDROCODONE/APAP 5-325MG TABLET PO PRN (21:06)
[2022-01-25] MEDS: ENOXAPARIN SODIUM 40 MG/0.4 ML DISP.SYRIN SQ SCH (21:07)
[2022-01-26] MEDS: ALBUTEROL SULFATE 1.25 MG/3 ML NEBU NEB SCH ×4 (00:57→19:23)
[2022-01-26 04:26] VITALS: BP 117/75
[2022-01-26 05:07] LABS: A/G RATIO 0.9 (0.7-1.7); ALBUMIN 3.1 g/dL (2.9-4.4); ALPHA-1-GLOBULIN 0.4 g/dL (0.0-0.4); ALPHA-2-GLOBULIN 0.9 g/dL (0.4-1.0); BETA GLOBULIN 0.8 g/dL (0.7-1.3); GAMMA GLOBULIN 1.4 g/dL (0.4-1.8); GLOBULIN, TOTAL 3.5 g/dL (2.2-3.9); M-SPIKE Not Observed g/dL (Not Observed)
[2022-01-26 06:00] LABS: HEMATOCRIT 39.3 % (36.7-47.1); MEAN CORPUSCULAR HEMOGLOBIN 31.4 uug (23.8-33.4); MEAN CORPUSCULAR VOLUME 92.9 fL (73.0-96.2); PLATELET COUNT (AUTO) 261 K/uL (152-348)
[2022-01-26 06:11] LABS: CREATININE 0.9 mg/dL (0.6-1.3); POTASSIUM 3.5 mmol/L (3.5-5.1)
[2022-01-26] MEDS: DIVALPROEX 125 MG TABLET.DR PO SCH ×3 (08:45→20:41)
[2022-01-26] MEDS: OLANZAPINE 5 MG TABLET PO SCH (08:45)
[2022-01-26] MEDS: MULTIVITAMINS,THERAPEUTIC TABLET PO SCH (08:45)
[2022-01-26] MEDS: GABAPENTIN 300 MG CAPSULE PO SCH ×2 (08:45→16:37)
[2022-01-26] MEDS: ASPIRIN EC 81 MG TABLET.DR PO SCH (08:45)
[2022-01-26] MEDS: SENNOSIDES 1 TABLET PO SCH (08:45)
[2022-01-26] MEDS: PANTOPRAZOLE SODIUM 40 MG VIAL IV SCH (08:45)
[2022-01-26] MEDS: GLUCERNA SHAKE VANILLA 237 ML CAN PO SCH ×3 (08:49→20:42)
[2022-01-26 12:08] VITALS: BP 127/64
[2022-01-26 15:56] VITALS: BP 110/58
[2022-01-26] MEDS: IV NS 1000 ML 1,000 ML IV PRN (17:54)
[2022-01-26 20:27] VITALS: BP 101/66
[2022-01-26] MEDS: CEFTRIAXONE 1 G in IV DEXTROSE 5% 50 ML IV SCH (20:40)
[2022-01-26] MEDS: REMEDY ESSENTIAL ZINC PASTE 113 GM TOP SCH (20:40)
[2022-01-26] MEDS: ENOXAPARIN SODIUM 40 MG/0.4 ML DISP.SYRIN SQ SCH (20:43)
[2022-01-26] MEDS: OLANZAPINE 2.5 MG TABLET PO SCH (21:34)
[2022-01-26] MEDS: HYDROCODONE/APAP 5-325MG TABLET PO PRN (22:50)
[2022-01-27] MEDS: ALBUTEROL SULFATE 1.25 MG/3 ML NEBU NEB SCH ×4 (01:18→19:30)
[2022-01-27 05:50] VITALS: BP 136/78
[2022-01-27 06:12] LABS: HEMATOCRIT 41.1 % (36.7-47.1); MEAN CORPUSCULAR HEMOGLOBIN 31.4 uug (23.8-33.4); MEAN CORPUSCULAR VOLUME 92.7 fL (73.0-96.2); PLATELET COUNT (AUTO) 271 K/uL (152-348)
[2022-01-27 06:27] LABS: CREATININE 0.9 mg/dL (0.6-1.3); MAGNESIUM 1.9 mg/dL (1.8-2.4); PHOSPHOROUS 2.4 mg/dL (2.5-4.9); POTASSIUM 3.6 mmol/L (3.5-5.1)
[2022-01-27] MEDS: PANTOPRAZOLE SODIUM 40 MG VIAL IV SCH (09:01)
[2022-01-27] MEDS: SENNOSIDES 1 TABLET PO SCH (09:02)
[2022-01-27] MEDS: HYDROCODONE/APAP 5-325MG TABLET PO PRN (09:02)
[2022-01-27] MEDS: DIVALPROEX 125 MG TABLET.DR PO SCH ×3 (09:03→20:11)
[2022-01-27] MEDS: MULTIVITAMINS,THERAPEUTIC TABLET PO SCH (09:03)
[2022-01-27] MEDS: ASPIRIN EC 81 MG TABLET.DR PO SCH (09:03)
[2022-01-27] MEDS: OLANZAPINE 5 MG TABLET PO SCH (09:03)
[2022-01-27] MEDS: GABAPENTIN 300 MG CAPSULE PO SCH ×2 (09:03→16:25)
[2022-01-27] MEDS: REMEDY ESSENTIAL ZINC PASTE 113 GM TOP SCH ×2 (09:04→20:11)
[2022-01-27] MEDS: IV NS 1000 ML 1,000 ML IV PRN ×2 (09:43→22:07)
[2022-01-27] MEDS: GLUCERNA SHAKE VANILLA 237 ML CAN PO SCH ×3 (10:35→20:27)
[2022-01-27 12:00] VITALS: BP 105/68
[2022-01-27 15:55] VITALS: BP 103/63
[2022-01-27] MEDS ORDERED: NEUTRA PHOS PACKET PO ONE (16:00)
[2022-01-27] MEDS: CEFTRIAXONE 1 G in IV DEXTROSE 5% 50 ML IV SCH (20:08)
[2022-01-27 20:11] VITALS: BP 117/70
[2022-01-27] MEDS: ENOXAPARIN SODIUM 40 MG/0.4 ML DISP.SYRIN SQ SCH (20:11)
[2022-01-27] MEDS: OLANZAPINE 2.5 MG TABLET PO SCH (20:11)
[2022-01-28] MEDS: ALBUTEROL SULFATE 1.25 MG/3 ML NEBU NEB SCH ×3 (01:30→13:22)
[2022-01-28 04:47] VITALS: BP 127/82
[2022-01-28 06:23] LABS: CREATININE 0.8 mg/dL (0.6-1.3); PHOSPHOROUS 2.3 mg/dL (2.5-4.9); POTASSIUM 4.1 mmol/L (3.5-5.1)
[2022-01-28] MEDS: SENNOSIDES 1 TABLET PO SCH (08:08)
[2022-01-28] MEDS: OLANZAPINE 5 MG TABLET PO SCH (08:08)
[2022-01-28] MEDS: GABAPENTIN 300 MG CAPSULE PO SCH (08:08)
[2022-01-28] MEDS: DIVALPROEX 125 MG TABLET.DR PO SCH ×2 (08:08→13:12)
[2022-01-28] MEDS: MULTIVITAMINS,THERAPEUTIC TABLET PO SCH (08:08)
[2022-01-28] MEDS: ASPIRIN EC 81 MG TABLET.DR PO SCH (08:08)
[2022-01-28] MEDS: REMEDY ESSENTIAL ZINC PASTE 113 GM TOP SCH (08:09)
[2022-01-28] MEDS: PANTOPRAZOLE SODIUM 40 MG VIAL IV SCH (08:13)
[2022-01-28] MEDS: GLUCERNA SHAKE VANILLA 237 ML CAN PO SCH ×2 (10:08→13:12)
[2022-01-28 12:00] VITALS: BP 103/74
[2022-01-28] MEDS ORDERED: OLAN5TAB70 PO (13:53)
[2022-01-28] MEDS ORDERED: AMOX500C2 PO (13:53)
[2022-01-28] MEDS ORDERED: OLAN2.5T27 PO (13:53)
[2022-01-28] MEDS ORDERED: DIVA125T2 PO (13:53)
[2022-01-28] MEDS ORDERED: AMOXIcillin 500 MG CAPSULE PO SCH (22:00)
== END 2022-01-28 13:00 | DRG 871 ==
LOC: ER 16:38 → MEDSURG3 01-23 00:48
PROVIDERS: ADMIT Nurse Practitioner Acute Care; ATTEND Nurse Practitioner Acute Care
PROC: 05HC33Z Insertion of Infusion Device into Left Basilic Vein, Percutaneous Approach (ICD-10-PCS; principal; 2022-01-24)
DX: A41.59 Other Gram-negative sepsis (principal); J15.9 Unspecified bacterial pneumonia; N17.0 Acute kidney failure with tubular necrosis; G92.8 Other toxic encephalopathy; N39.0 Urinary tract infection, site not specified; E87.2 Acidosis; D68.59 Other primary thrombophilia; E44.0 Moderate protein-calorie malnutrition; R64 Cachexia; F03.91 Unspecified dementia, unspecified severity, with behavioral disturbance; Z16.23 Resistance to quinolones and fluoroquinolones; B96.4 Proteus (mirabilis) (morganii) as the cause of diseases classified elsewhere; Z20.822 Contact with and (suspected) exposure to COVID-19; Z68.23 Body mass index [BMI] 23.0-23.9, adult; M19.90 Unspecified osteoarthritis, unspecified site; G89.29 Other chronic pain; F41.9 Anxiety disorder, unspecified; I12.9 Hypertensive chronic kidney disease with stage 1 through stage 4 chronic kidney disease, or unspecified chronic kidney disease; E11.22 Type 2 diabetes mellitus with diabetic chronic kidney disease; N18.9 Chronic kidney disease, unspecified; Z85.51 Personal history of malignant neoplasm of bladder; Z86.718 Personal history of other venous thrombosis and embolism; Z78.1 Physical restraint status; Z79.899 Other long term (current) drug therapy; Z87.440 Personal history of urinary (tract) infections; Z79.82 Long term (current) use of aspirin; Z87.820 Personal history of traumatic brain injury; Z91.19 Patient's noncompliance with other medical treatment and regimen; Z93.6 Other artificial openings of urinary tract status; Z82.49 Family history of ischemic heart disease and other diseases of the circulatory system; Z74.01 Bed confinement status; F20.9 Schizophrenia, unspecified; R26.2 Difficulty in walking, not elsewhere classified; Z85.828 Personal history of other malignant neoplasm of skin; K44.9 Diaphragmatic hernia without obstruction or gangrene; Z95.828 Presence of other vascular implants and grafts; Z87.11 Personal history of peptic ulcer disease; F19.11 Other psychoactive substance abuse, in remission; Z87.01 Personal history of pneumonia (recurrent); F39 Unspecified mood [affective] disorder; R65.20 Severe sepsis without septic shock; Y95 Nosocomial condition
CPT/HCPCS: 36415; 71045; 83605; 83735; 83970; 84100; 84155; 84156; 84165; 84300; 84443; 84484; 85025; 85730; 87040; 87070; 87077; 87086; 93005; 94640; 94664; A4663; C9113; G0378; J0692; J0696; J1650; J1956; J2060; J2270; J2358; J2543; J3490; J7030; J7050; J7060

== ENCOUNTER 2022-02-12 19:33 | Inpatient (IN) | payer MEDICARE, OTHER ==
[~2022-02-12] VITALS: Ht 160 cm; Wt 51.3 kg
[~2022-02-12 19:33] MED LIST changes: +ALBU0.63 IH; +AMOX500C2 PO; -ASCO500T10 PO; -CEFE1VIA3 IV; -DEXT50VI3 IV; +DIVA125T2 PO; -GLUC1KIT IM; +OLAN2.5T27 PO; -OLAN2.5T3 PO; +OLAN5TAB70 PO; -OXYC10TA59 PO; -PANT40TA49 PO
--- NOTE | 2022-02-12 19:44 | NUR ---
Dr Nuno at bedside, MSE in progress.
--- NOTE | 2022-02-12 19:50 | NUR ---
pt refusing blood draw. Swatting and hitting at MD yadi, and phlebotamist.
[2022-02-12] MEDS ORDERED: IV NORMAL SALINE 100 ML BAG IV ONE ×2 (20:00→20:15)
[2022-02-12] MEDS ORDERED: MAGNESIUM HYDROXIDE 30 ML LIQUID UDC PO PRN ×2 (20:30→20:45)
[2022-02-12] MEDS ORDERED: HYDROCODONE/APAP 5-325MG TABLET PO PRN (20:30)
[2022-02-12] MEDS ORDERED: ACETAMINOPHEN 325 MG TABLET PO PRN ×2 (20:45→21:00)
[2022-02-12] MEDS ORDERED: PIPERACILLIN SODIUM/TAZOBACTAM 3.375 G in IV DEXTROSE 5% 50 ML IV ONE (20:45)
[2022-02-12] MEDS ORDERED: ONDANSETRON 4 MG/2 ML VIAL IV PRN (20:45)
[2022-02-12] MEDS ORDERED: REMEDY ESSENTIAL ZINC PASTE 113 GM TP PRN (20:45)
[2022-02-12] MEDS ORDERED: VANCOMYCIN IV 1,000 MG in IV DEXTROSE 5% 250 ML IV ONE (20:45)
[2022-02-12] MEDS: DIVALPROEX 125 MG TABLET.DR PO SCH (21:00)
[2022-02-12] MEDS ORDERED: PIPERACILLIN/TAZOBACTAM/D5W 50 ML IV ONE (21:00)
[2022-02-12] MEDS: OLANZAPINE 2.5 MG TABLET PO SCH (21:00)
[2022-02-12] MEDS: MELATONIN 3 MG TABLET PO SCH (21:00)
[2022-02-12 22:29] LABS: HEMATOCRIT 46.1 % (36.7-47.1); MEAN CORPUSCULAR HEMOGLOBIN 30.8 uug (23.8-33.4); MEAN CORPUSCULAR VOLUME 95.5 fL (73.0-96.2); PLATELET COUNT (AUTO) 180 K/uL (152-348)
[2022-02-12 22:37] LABS: CARBON DIOXIDE 25 mmol/L (21-32); CHLORIDE 108 mmol/L (98-107); CREATININE 0.9 mg/dL (0.6-1.3); GLUCOSE 130 mg/dL (74-106); UREA NITROGEN, BLOOD 31 mg/dL (7-18)
[2022-02-12 22:45] LABS: ALANINE AMINOTRANSFERASE 16 U/L (16-63); ALKALINE PHOSPHATASE 79 U/L (50-136); ASPARTATE AMINOTRANSFERASE 16 U/L (15-37); BILIRUBIN,DIRECT 0.2 mg/dL (0.0-0.2); BILIRUBIN,TOTAL 0.7 mg/dL (0.2-1.0); TOTAL PROTEIN, SERUM 6.6 g/dL (6.4-8.2)
[2022-02-12] MEDS ORDERED: VANCOMYCIN IV 200 ML ONE (22:52)
--- NOTE | 2022-02-13 00:16 | NUR ---
Report given to [facility].
[2022-02-13] MEDS ORDERED: LIDOCAINE 2% (UROJET) 10 ML JELLY MM ONE (00:27)
[2022-02-13] MEDS ORDERED: LIDOCAINE 2% (UROJET) 10 ML JELLY MM PRN (00:30)
[2022-02-13 01:30] VITALS: BP 118/67
--- NOTE | 2022-02-13 01:30 | NUR ---
Admitted a 71 yr old male to Tele unit from ER via [employer] [employer] . Dx of Sepsis. Patient awake and confused.No facial grimaces of discomfort. Picc line on left upper arm patent and intact.Started IVF at 90 ml/hr.Urostomy on left lower quadrant with clear yellow output. NSR on Tel HR 75.O2@ at 4LPM via NC saturating at 95 %.Safety measures in place. VSs .Call light with in reach.Will continue to monitor.
[2022-02-13] MEDS: IV NS 1000 ML 1,000 ML IV PRN ×3 (02:28→22:24)
[2022-02-13 04:00] VITALS: BP 133/79
[2022-02-13] MEDS ORDERED: PIPERACILLIN/TAZOBACTAM/D5W 50 ML IV ONE (04:58)
[2022-02-13] MEDS ORDERED: PIPERACILLIN SODIUM/TAZOBACTAM 3.375 G in IV DEXTROSE 5% 50 ML IV SCH (05:00)
[2022-02-13 05:26] LABS: *BILIRUBIN,URIN NEGATIVE (NEGATIVE); *BLOOD, URINE 2+ (NEGATIVE); *CLARITY,URINE CLOUDY (CLEAR); *COLOR,URINE YELLOW (YELLOW); *KETONES,URINE NEGATIVE (NEGATIVE); *UROBILINOGEN,URINE 0.2 E.U./dl (NORMAL); LEUKOCYTE ESTERASE ,URINE 2+ (NEGATIVE); NITRITE, URINE POSITIVE (NEGATIVE); PH,URINE 8.5 (5.0-8.0); UGLUCOSE NEGATIVE (NEGATIVE)
[2022-02-13 05:33] LABS: BACTERIA,URINE MANY /HPF (NONE SEEN); RBC,URINE 20-50 /HPF (0-3); SQUAMOUS EPITHELIAL CELL,UR FEW /HPF (NONE SEEN); TRIPLE PHOSPHATE CRYSTAL,UR MANY /HPF (NONE SEEN); WBC,URINE TNTC /HPF (0-3)
--- NOTE | 2022-02-13 06:31 | NUR ---
Patient awake .Refused lab draw this morning.Explained risk and benefits.Continue to refused.Infused IV ATB .No a/r noted .Urine collected and sent to lab. Will endorse to oncoming shift.
--- NOTE | 2022-02-13 07:30 | NUR ---
Awake, alert, oriented to name, agitated. hits with his hand, asking for water. IVF infusing. O2 at 4L/NC. Repositioned in bed comfortably.
[2022-02-13] MEDS ORDERED: Medication Not On Formulary EA (Cranberry Fruit Concentrate (Cranberry) 450 MG) PO SCH (09:00)
[2022-02-13] MEDS ORDERED: Medication Not On Formulary EA (Lactobacillus Acidophilus (Acidophilus) 1 EACH) PO SCH (09:00)
[2022-02-13] MEDS: DIVALPROEX 125 MG TABLET.DR PO SCH ×4 (09:00→20:52)
[2022-02-13] MEDS ORDERED: Medication Not On Formulary EA (Multivitamins W-Minerals (Multivitamin With Minerals) 1 PO SCH (09:00)
--- NOTE | 2022-02-13 09:00 | NUR ---
Refusing to take medications and lab draw.
[2022-02-13] MEDS: CULTURELLE CAPSULE PO SCH ×2 (09:56→17:38)
[2022-02-13] MEDS: ASPIRIN EC 81 MG TABLET.DR PO SCH (09:56)
[2022-02-13] MEDS: SENNOSIDES 1 TABLET PO SCH (09:57)
[2022-02-13] MEDS: GABAPENTIN 300 MG CAPSULE PO SCH ×2 (09:57→17:38)
[2022-02-13] MEDS: OLANZAPINE 5 MG TABLET PO SCH (09:57)
[2022-02-13] MEDS: MULTIVIT, IRON, MIN NO. 8, FA TABLET PO SCH (09:57)
[2022-02-13] MEDS: METOPROLOL TARTRATE 50 MG TABLET PO SCH ×2 (11:55→20:52)
[2022-02-13] MEDS: PIPERACILLIN SODIUM/TAZOBACTAM 3.375 G in IV DEXTROSE 5% 50 ML IV SCH ×3 (11:55→23:53)
[2022-02-13 12:00] VITALS: BP 112/74
--- NOTE | 2022-02-13 12:00 | NUR ---
POA at bedside assisted patient with meal, Able to eat meal and took medications and agreed to lab draw.
[2022-02-13 12:30] LABS: HEMATOCRIT 43.9 % (36.7-47.1); MEAN CORPUSCULAR HEMOGLOBIN 31.9 uug (23.8-33.4); MEAN CORPUSCULAR VOLUME 94.3 fL (73.0-96.2); PLATELET COUNT (AUTO) 364 K/uL (152-348)
[2022-02-13 12:37] LABS: BILIRUBIN,DIRECT 0.2 mg/dL (0.0-0.2); CREATININE 1.1 mg/dL (0.6-1.3); MAGNESIUM 1.9 mg/dL (1.8-2.4); PHOSPHOROUS 3.2 mg/dL (2.5-4.9); POTASSIUM 4.6 mmol/L (3.5-5.1); TOTAL PROTEIN, SERUM 6.9 g/dL (6.4-8.2)
[2022-02-13 16:00] VITALS: BP 123/77
--- NOTE | 2022-02-13 18:21 | NUR ---
Cooperative with nursing. Assisted with meal, with fair appetite. Compliant with taking of medication
[2022-02-13 20:00] VITALS: BP 92/53
--- NOTE | 2022-02-13 20:35 | NUR ---
RECEIVED PATIENT IN BED. AAOX1, ORIENTED TO SELF ONLY, NOTED TO BE COMBATIVE WITH NURSING INTERVENTIONS. IV AT DOLORES PICC LINE, RUNNING 90CC/HR OF 0.9% NORMAL SALINE. WITH 4L O2, SATURATING AT 99%, PLAN IS TO TITRATE DOWN TO 3L. WITH UROSTOMY DRAINING YELLOW URINE, WITH SEDIMENTS. PATIENT'S BP IS NOTED TO BE LOW, AT 85/51MMHG WITH HR OF 58BPM, FLUID DYNAMICIST NOTIFIED. SAFETY PRECAUTIONS INITIATED. CALL LIGHT BUTTON WITHIN REACH. WILL CONTINUE TO MONITOR.
[2022-02-13] MEDS: MELATONIN 3 MG TABLET PO SCH (20:53)
[2022-02-13] MEDS: OLANZAPINE 2.5 MG TABLET PO SCH (20:53)
--- NOTE | 2022-02-13 21:00 | NUR ---
MD ORDERED IV BOLUS NS TO BE STARTED. WILL NOTIFY MD REGARDING BP POST IV BOLUS.
[2022-02-13] MEDS ORDERED: IV NS 1000 ML 1,000 ML IV ONE (21:15)
--- NOTE | 2022-02-13 21:25 | NUR ---
PATIENT REFUSED PO MEDICATIONS.
--- NOTE | 2022-02-13 22:15 | NUR ---
NOTIFIED MD REGARDING PATIENT'S BP POST IV BOLUS, 110/64MMHG WITH HR 62BPM. MD ACKNOWLEDGED RECEIPT.
[2022-02-13 22:33] VITALS: BP 110/64
[2022-02-13] MEDS ORDERED: VANCOMYCIN IV 1,000 MG in IV DEXTROSE 5% 250 ML IV SCH (23:00)
[2022-02-14 04:00] VITALS: BP 102/66
[2022-02-14] MEDS: PIPERACILLIN SODIUM/TAZOBACTAM 3.375 G in IV DEXTROSE 5% 50 ML IV SCH ×4 (05:23→23:20)
--- NOTE | 2022-02-14 05:26 | NUR ---
Patient slept through the night, with no complaints. Showing sinus rhythm on telemonitor, with episodes of bradycardia. On 3L O2 saturating at 96-97%, no SOB noted at this time. HOB of bed elevated. IV infusion 0.9% N.S at 90cc/hr at DOLORES PICC line. Urostomy bag changed. Wet BM x 1. Snacks requested and provided. Safety precautions maintained. Will endorse to day shift.
[2022-02-14] MEDS: GABAPENTIN 300 MG CAPSULE PO SCH ×2 (09:00→17:00)
[2022-02-14] MEDS: METOPROLOL TARTRATE 50 MG TABLET PO SCH ×2 (09:00→20:49)
[2022-02-14] MEDS: CULTURELLE CAPSULE PO SCH ×2 (09:00→17:00)
[2022-02-14] MEDS: MULTIVIT, IRON, MIN NO. 8, FA TABLET PO SCH (09:00)
[2022-02-14] MEDS: OLANZAPINE 5 MG TABLET PO SCH (09:00)
[2022-02-14] MEDS: ASPIRIN EC 81 MG TABLET.DR PO SCH (09:00)
[2022-02-14] MEDS: SENNOSIDES 1 TABLET PO SCH (09:00)
[2022-02-14] MEDS: DIVALPROEX 125 MG TABLET.DR PO SCH ×3 (09:00→20:49)
[2022-02-14 11:01] VITALS: BP 117/55
[2022-02-14] MEDS: IV NS 1000 ML 1,000 ML IV PRN ×2 (11:52→23:21)
[2022-02-14 15:35] VITALS: BP 100/59
--- NOTE | 2022-02-14 19:55 | NUR ---
Received patient in bed, asleep. Awaken by deep touch. Awake, alert oriented to self only. Reoriented patient accordingly. Patient is noted to be combative and aggressive. With IV access at DOLORES PICC line, infusing 90cc/hr of 0.9% NS. On 3L O2 via nasal cannula. With urostomy bag, draining clear yellow urine. Wound care consult ordered by ELECTRONICS ENGINEERING PROFESSOR Hattie. Safety precautions initiated. Bed alarm activated, call light button within reach. Will continue to monitor.
[2022-02-14 20:48] VITALS: BP 105/63
[2022-02-14] MEDS: MELATONIN 3 MG TABLET PO SCH (20:49)
[2022-02-14] MEDS: OLANZAPINE 2.5 MG TABLET PO SCH (20:50)
--- NOTE | 2022-02-14 21:16 | NUR ---
Patient compliant with PM PO meds. Snacks requested and provided.
[2022-02-15 00:27] VITALS: BP 101/62
--- NOTE | 2022-02-15 03:38 | NUR ---
For Urine culture: Urine collected and sent to lab on 02/12/22, lab sent to [facility]. Lab advised that they will f/u with [facility] for results.
[2022-02-15 04:52] VITALS: BP 100/63
[2022-02-15] MEDS: PIPERACILLIN SODIUM/TAZOBACTAM 3.375 G in IV DEXTROSE 5% 50 ML IV SCH (05:08)
--- NOTE | 2022-02-15 05:37 | NUR ---
Patient intermittently through the night. Able to makes needs known. Compliant with PO medication. Pt has been snacking, able to swallow with no complication. IV access patent and intact. Urostomy draining clear yellow urine. Safety precautions maintained. Will endorse to day shift.
[2022-02-15 07:17] LABS: HEMATOCRIT 39.3 % (36.7-47.1); MEAN CORPUSCULAR HEMOGLOBIN 31.4 uug (23.8-33.4); MEAN CORPUSCULAR VOLUME 91.8 fL (73.0-96.2); PLATELET COUNT (AUTO) 332 K/uL (152-348)
[2022-02-15 07:20] LABS: CREATININE 0.9 mg/dL (0.6-1.3); POTASSIUM 3.6 mmol/L (3.5-5.1)
[2022-02-15 09:00] VITALS: BP 99/61
[2022-02-15] MEDS: METOPROLOL TARTRATE 50 MG TABLET PO SCH ×2 (09:00→20:59)
[2022-02-15] MEDS: CULTURELLE CAPSULE PO SCH ×2 (09:13→16:14)
[2022-02-15] MEDS: GABAPENTIN 300 MG CAPSULE PO SCH ×2 (09:13→16:14)
[2022-02-15] MEDS: ASPIRIN EC 81 MG TABLET.DR PO SCH (09:13)
[2022-02-15] MEDS: DIVALPROEX 125 MG TABLET.DR PO SCH ×5 (09:13→20:58)
[2022-02-15] MEDS: SENNOSIDES 1 TABLET PO SCH (09:14)
[2022-02-15] MEDS: OLANZAPINE 5 MG TABLET PO SCH (09:14)
[2022-02-15] MEDS: MULTIVIT, IRON, MIN NO. 8, FA TABLET PO SCH (09:14)
[2022-02-15 11:18] VITALS: BP 100/61
[2022-02-15] MEDS: IV NS 1000 ML 1,000 ML IV PRN (13:05)
--- NOTE | 2022-02-15 13:55 | NUR ---
WOUND CARE CONSULT: VERY DIFFICULT ASSESSMENT DUE TO PT UNCOOPERATIVE AND COMBATIVE AT TIMES. SACRAL SCARRING WITH SOME INCONTINENCE ASSOCIATED SKIN DAMAGE OVER SCARRING NOTED, PRESENT ON ADMISSION. RECOMMENDATIONS MADE FOR SKIN PROTECTION. DISCUSSED WITH NURSING STAFF. LONG, CURLING TOENAILS NOTED. DPM CONSULT CALLED TO DR HAMPAPUR. BOUCHER IN AGREEMENT WITH PLAN OF CARE.
[2022-02-15] MEDS ORDERED: PIPERACILLIN SODIUM/TAZOBACTAM 3.375 G in IV DEXTROSE 5% 100 ML IV SCH (14:00)
[2022-02-15] MEDS: LINEZOLID 600 MG TABLET PO SCH ×2 (15:55→21:03)
[2022-02-15 16:05] VITALS: BP 109/78
--- NOTE | 2022-02-15 17:30 | NUR ---
Patient is (+) MRSA both nare per lab. charge nurse received the call at [id number]. Dr Kuhn, SOIL EXPERT made aware. order in place for atb ointment. carried out.
--- NOTE | 2022-02-15 19:00 | NUR ---
Patient remained stable during the shift. all needs attended. Compliant with meds but needs redirection. no concerns identified. safety measures maintained at all times. will endorse to the next shift for continuity of care.
[2022-02-15 20:34] VITALS: BP 107/67
[2022-02-15] MEDS: MELATONIN 3 MG TABLET PO SCH (20:58)
[2022-02-15] MEDS: CEFEPIME HCL 1 G in IV DEXTROSE 5% 50 ML IV SCH (20:59)
[2022-02-15] MEDS: OLANZAPINE 2.5 MG TABLET PO SCH (21:03)
[2022-02-15] MEDS: MUPIROCIN 2% OINT 22 GM TUBE NS SCH (21:06)
--- NOTE | 2022-02-15 21:26 | NUR ---
Patient in bed alert oriented to self only. Reoriented accordingly.Patient requesting for sandwich .Snacks provided. No cough noted. On 3L O2 via nasal cannula.No s/s of distress noted. With urostomy bag, draining clear yellow urine.DOLORES PICC line with 90cc/hr of 0.9% NS. Tolerated well.COmpliant with medication.call light button within reach. Will continue to monitor.
[2022-02-16] MEDS: IV NS 1000 ML 1,000 ML IV PRN ×2 (03:34→18:00)
--- NOTE | 2022-02-16 06:52 | NUR ---
Patient slept well. No episodes of combative and agitation. No acute distress noted. All needs anticipated and met accordingly.
[2022-02-16 06:55] LABS: HEMATOCRIT 39.3 % (36.7-47.1); MEAN CORPUSCULAR VOLUME 91.2 fL (73.0-96.2); PLATELET COUNT (AUTO) 334 K/uL (152-348)
[2022-02-16 07:16] LABS: CREATININE 0.8 mg/dL (0.6-1.3); POTASSIUM 3.3 mmol/L (3.5-5.1)
--- NOTE | 2022-02-16 07:40 | NUR ---
RECEIVED IN BED AWAKE ALERT TO SELF ABLE TO MAKE KNOWN SIMPLE NEEDS TOTALLY DEPENDENT FOR ALL ADL ON O2 AT 2L/M WITH NO SOB AT THIS TIME IVF IN PROGRESS ORDERED WITH NO S/S OF INFILTERATION ON MIDLINE SITE UROSTOMY INTACT POTASSIUM LEVEL IS 3.[address] WILBURN WITH NEW ORDERS AND NOTED.
[2022-02-16] MEDS: POTASSIUM CHLORIDE 50 ML IV SCH ×4 (08:20→13:03)
[2022-02-16] MEDS: ASPIRIN EC 81 MG TABLET.DR PO SCH (08:35)
[2022-02-16] MEDS: MULTIVIT, IRON, MIN NO. 8, FA TABLET PO SCH (08:35)
[2022-02-16] MEDS: GABAPENTIN 300 MG CAPSULE PO SCH ×2 (08:35→17:00)
[2022-02-16] MEDS: SENNOSIDES 1 TABLET PO SCH (08:35)
[2022-02-16] MEDS: CULTURELLE CAPSULE PO SCH ×2 (08:35→17:00)
[2022-02-16] MEDS: OLANZAPINE 5 MG TABLET PO SCH (08:35)
[2022-02-16] MEDS: DIVALPROEX 125 MG TABLET.DR PO SCH ×2 (08:38→14:15)
[2022-02-16] MEDS: METOPROLOL TARTRATE 50 MG TABLET PO SCH ×2 (08:40→21:00)
[2022-02-16] MEDS: LINEZOLID 600 MG TABLET PO SCH ×2 (08:45→21:00)
[2022-02-16] MEDS: CEFEPIME HCL 1 G in IV DEXTROSE 5% 50 ML IV SCH ×2 (08:45→21:26)
[2022-02-16] MEDS: MUPIROCIN 2% OINT 22 GM TUBE NS SCH ×2 (08:47→21:00)
--- NOTE | 2022-02-16 11:00 | NUR ---
DR SINGH PODIATRY HERE TO SEE PATIENT RE TOE NAILS BUT PATIENT REFUSED HER CARE AT THIS TIME.
[2022-02-16 12:00] VITALS: BP 103/66
--- NOTE | 2022-02-16 13:30 | NUR ---
CONTINUE TO BE VERBALLY ABUSIVE UNCOOPERATIVE RESTLESS REFUSING TO EAT AND RESISTING CARE REMAIN ON IVF ORDERED IV ATB IS IN PROGRESS WITH NO ADVERSE OR ALLERGIC REACTIONS AT THIS TIME.WILL CONTINUE TO OBSERVE AND PROVIDE SAFE AND THERAPEUTIC ENVIRONMENT AT ALL TIMES.
--- NOTE | 2022-02-16 14:11 | NUR ---
Clinical Social Work Note Pt is a 71 year old male who presents with a picture of delirium due to a medical condition. Patient is calling this clinician to "come and see something " that is not there at his bedside. Patient may be hallucinating due to delirium. Dr Villegas will come and evaluate patient to see if he could benefit from psychotropic medication. Patient does have history of mental illness but his medical issues trump any psychotic disorder at this point. Patient was transferred from his residential facility, [facility] due to sepsis and other co-morbidity. Patient is not meeting nay criteria for GPS or [id number] as he has an accepting facility. Dr Villegas will consult on the medical floor. Plan Psychiatry consult and patient will return to residential facility once stable.
[2022-02-16 16:00] VITALS: BP 107/66
--- NOTE | 2022-02-16 18:00 | NUR ---
PATIENT HAS BEEN REFUSING MEDICATIONS AND MEALS OFF AND ON REFUSES AT TIMES DESPITE ENCOURAGEMENT AND EXPLAINATIONS PATIENT HAS A PSYCH EVAL ORDER AND HE IS A [facility] PATIENT OF DR MIRANDA FROM THE INTERMEDIATE SO DR MADRIGAL NOTIFIED AND SHE STATED THAT SHE WILL CALL DR ERWIN AND CANCEL THE CONSULT WITH HIM.CALLED DR MIRANDA CALLED AND NOTIFIED THAT HIS PATIENT IS HERE AND NEEDS A PSYCH CONSULT LEFT HIM A MESSAGE ON HIS VOICE MAIL.
[2022-02-16 20:00] VITALS: BP 126/69
--- NOTE | 2022-02-16 20:30 | NUR ---
PATIENT AWAKE, REFUSING PO MEDICATIONS, BACTROBAN OINT FOR NARES, DESPITE ENCOURAGEMENT, PATIENT VERBALLY ABUSIVE, CURSING STAFF, HOSTILE BEHAVIOR THROWING JUICE CONTAINER AT STAFF. PATIENT BEEN REPORTED THAT WHEN GIVING MEDICATION CRUSH WITH APPLE SAUCE PATIENT SPIT IT OUT, NON COOPERATIVE WITH CARE. PATIENT REMAINS IN CONTACT PRECAUTION, MRSA NARES, VRE URINE. PATIENT UROSTOMY DRAINING WITH YELLOW COLOR URINE IN MODERATE AMOUNT, CONT TO MONITOR.
[2022-02-16] MEDS: MIRTAZAPINE 15 MG TAB.RAPDIS SL SCH (21:00)
[2022-02-16] MEDS: DIVALPROEX 250 MG TABLET.DR PO SCH (21:00)
[2022-02-16] MEDS: MELATONIN 3 MG TABLET PO SCH (21:00)
[2022-02-16] MEDS: OLANZAPINE 2.5 MG TABLET PO SCH (21:00)
[2022-02-16] MEDS ORDERED: DIVALPROEX 125 MG TABLET.DR PO SCH (21:00)
--- NOTE | 2022-02-17 04:42 | NUR ---
Patient slept intermittently, no complain of pain, urostomy draining with yellow color urine in moderate amount, patient continue to refused medication, gets aggressive to staff when encouragement is being done, patient also cursing staff, non compliant with the medication, kept clean and dry, cont to monitor.
[2022-02-17 06:44] LABS: MAGNESIUM 1.9 mg/dL (1.8-2.4); PHOSPHOROUS 1.8 mg/dL (2.5-4.9)
[2022-02-17 08:00] VITALS: BP 90/57
[2022-02-17 08:09] LABS: HEMATOCRIT 41.8 % (36.7-47.1); MEAN CORPUSCULAR HEMOGLOBIN 30.8 uug (23.8-33.4); MEAN CORPUSCULAR VOLUME 92.3 fL (73.0-96.2); PLATELET COUNT (AUTO) 405 K/uL (152-348)
[2022-02-17] MEDS: METOPROLOL TARTRATE 50 MG TABLET PO SCH (08:12)
[2022-02-17 08:13] LABS: CREATININE 0.7 mg/dL (0.6-1.3); POTASSIUM 3.8 mmol/L (3.5-5.1)
[2022-02-17] MEDS: OLANZAPINE 5 MG TABLET PO SCH (09:00)
[2022-02-17] MEDS: CULTURELLE CAPSULE PO SCH ×2 (09:00→17:00)
[2022-02-17] MEDS: DIVALPROEX 250 MG TABLET.DR PO SCH ×3 (09:00→20:56)
[2022-02-17] MEDS: MUPIROCIN 2% OINT 22 GM TUBE NS SCH ×2 (09:00→21:00)
[2022-02-17] MEDS: MULTIVIT, IRON, MIN NO. 8, FA TABLET PO SCH (09:00)
[2022-02-17] MEDS: SENNOSIDES 1 TABLET PO SCH (09:00)
[2022-02-17] MEDS: LINEZOLID 600 MG TABLET PO SCH (09:00)
[2022-02-17] MEDS: ASPIRIN EC 81 MG TABLET.DR PO SCH (09:00)
[2022-02-17] MEDS: GABAPENTIN 300 MG CAPSULE PO SCH ×2 (09:00→17:00)
[2022-02-17] MEDS: CEFEPIME HCL 1 G in IV DEXTROSE 5% 50 ML IV SCH ×2 (09:11→21:50)
--- NOTE | 2022-02-17 09:25 | NUR ---
Pt is alert, not cooperative with care. Pt refused all PO medications, refused to have ointment applied to nares for MRSA infection. Pt did not interfere with IV antibiotics, was able to administer. has been notified of rejection of medications. Will continue to monitor.
--- NOTE | 2022-02-17 13:04 | NUR ---
Urostomy bag was leaking, placed new one. Intact, skin dry and clean. No evidence of skin breakdown. Ostomy pink.
[2022-02-17] MEDS: LINEZOLID IV 600 MG in PREMIXED 1 EACH IV SCH (15:41)
[2022-02-17 15:48] VITALS: BP 126/74
[2022-02-17] MEDS ORDERED: POTASSIUM PHOSPHATE MM 15 MMOL in IV NORMAL SALINE 250 ML IV ONE (17:00)
--- NOTE | 2022-02-17 19:38 | NUR ---
Received patient in bed. AAOX1 - self only. Reoriented patient accordingly. Noted to be combative with nursing interventions. With DOLORES ML, infusing potassium phosphate. With urostomy bag intact. With 3L O2 via nasal cannula. Safety precautions in place. Will continue to monitor.
[2022-02-17 20:00] VITALS: BP 132/78
[2022-02-17] MEDS: MELATONIN 3 MG TABLET PO SCH (20:55)
[2022-02-17] MEDS: METOPROLOL TARTRATE 25 MG TABLET PO SCH (20:56)
[2022-02-17] MEDS: OLANZAPINE 2.5 MG TABLET PO SCH (20:56)
[2022-02-17] MEDS: MIRTAZAPINE 15 MG TAB.RAPDIS SL SCH (20:57)
[2022-02-17] MEDS ORDERED: METOPROLOL TARTRATE 50 MG TABLET PO SCH (21:00)
--- NOTE | 2022-02-17 21:00 | NUR ---
Patient refused to have ointment applied to nares for MRSA infection.
[2022-02-18] MEDS: LINEZOLID IV 600 MG in PREMIXED 1 EACH IV SCH (03:11)
--- NOTE | 2022-02-18 03:39 | NUR ---
Patient compliant with PO medications. Antibiotics were given and tolerated well. IV access patent and intact. Urostomy bag was noted to be leaking, changed bag, now draining yellow urine with sediments noted, stoma is pink in color. On 3L O2, saturating at 99%. Snacks were requested and provided. Stool taken and sent to lab. Safety precautions maintained. Will endorse to day shift.
[2022-02-18 04:00] VITALS: BP 116/74
[2022-02-18 06:26] LABS: HEMATOCRIT 37.6 % (36.7-47.1); MEAN CORPUSCULAR HEMOGLOBIN 31.1 uug (23.8-33.4); MEAN CORPUSCULAR VOLUME 90.3 fL (73.0-96.2); PLATELET COUNT (AUTO) 380 K/uL (152-348)
[2022-02-18 06:42] LABS: CREATININE 0.7 mg/dL (0.6-1.3); MAGNESIUM 1.8 mg/dL (1.8-2.4); PHOSPHOROUS 2.1 mg/dL (2.5-4.9); POTASSIUM 3.4 mmol/L (3.5-5.1)
[2022-02-18] MEDS ORDERED: POTASSIUM CHLORIDE 20 MEQ POWDER PACKET GT ONE (07:30)
[2022-02-18] MEDS: CEFEPIME HCL 1 G in IV DEXTROSE 5% 50 ML IV SCH (09:06)
[2022-02-18] MEDS: MULTIVIT, IRON, MIN NO. 8, FA TABLET PO SCH (09:06)
[2022-02-18] MEDS: OLANZAPINE 5 MG TABLET PO SCH (09:10)
[2022-02-18] MEDS: SENNOSIDES 1 TABLET PO SCH (09:10)
[2022-02-18] MEDS: MUPIROCIN 2% OINT 22 GM TUBE NS SCH (09:10)
[2022-02-18] MEDS: CULTURELLE CAPSULE PO SCH (09:10)
[2022-02-18] MEDS: DIVALPROEX 250 MG TABLET.DR PO SCH ×2 (09:10→13:21)
[2022-02-18] MEDS: METOPROLOL TARTRATE 25 MG TABLET PO SCH (09:12)
[2022-02-18] MEDS: ASPIRIN EC 81 MG TABLET.DR PO SCH (09:18)
[2022-02-18] MEDS: GABAPENTIN 300 MG CAPSULE PO SCH (09:18)
[2022-02-18] MEDS ORDERED: MIRT15TA3 SL (10:11)
[2022-02-18] MEDS ORDERED: Cefepime Hcl IV (10:11)
[2022-02-18] MEDS ORDERED: LINE600I IV (10:11)
[2022-02-18] MEDS ORDERED: METO25TA6 PO (10:11)
[2022-02-18] MEDS ORDERED: CEFE1PIG3 IV (10:11)
[2022-02-18 11:15] VITALS: BP 100/68
--- NOTE | 2022-02-18 14:52 | NUR ---
Discharged patient via ambulance with food service specialist transported with madiha. report given to ANDREINA Gael at [facility]. Skin intact. urostomy intact, draining, no leaks. Midline to DOLORES intact and patent, RN from the facility made aware and patient will continue IV ATB in the facility x5days as ordered. He remained confused. unable to sign and unable to make needs known. He had episode of refusing medication. No acute distress identified during the shift. no pain noted.
== END 2022-02-18 15:00 | DRG 871 ==
LOC: ER 19:33 → TELE3 23:47 → MEDSURG3 02-15 10:05
PROVIDERS: ADMIT Nurse Practitioner Acute Care; ATTEND Nurse Practitioner Acute Care
PROC: 05H633Z Insertion of Infusion Device into Left Subclavian Vein, Percutaneous Approach (ICD-10-PCS; principal; 2022-02-15)
PROC: B547ZZA Ultrasonography of Left Subclavian Vein, Guidance (ICD-10-PCS; 2022-02-15)
DX: A41.9 Sepsis, unspecified organism (principal); N17.0 Acute kidney failure with tubular necrosis; G93.41 Metabolic encephalopathy; E43 Unspecified severe protein-calorie malnutrition; J15.9 Unspecified bacterial pneumonia; N39.0 Urinary tract infection, site not specified; Z16.21 Resistance to vancomycin; D68.59 Other primary thrombophilia; I48.20 Chronic atrial fibrillation, unspecified; R64 Cachexia; I48.92 Unspecified atrial flutter; J90 Pleural effusion, not elsewhere classified; B95.2 Enterococcus as the cause of diseases classified elsewhere; B96.89 Other specified bacterial agents as the cause of diseases classified elsewhere; Z66 Do not resuscitate; E11.22 Type 2 diabetes mellitus with diabetic chronic kidney disease; E78.5 Hyperlipidemia, unspecified; F03.90 Unspecified dementia, unspecified severity, without behavioral disturbance, psychotic disturbance, mood disturbance, and anxiety; F20.9 Schizophrenia, unspecified; G89.29 Other chronic pain; I12.9 Hypertensive chronic kidney disease with stage 1 through stage 4 chronic kidney disease, or unspecified chronic kidney disease; M19.90 Unspecified osteoarthritis, unspecified site; N18.9 Chronic kidney disease, unspecified; R62.7 Adult failure to thrive; Z79.82 Long term (current) use of aspirin; Z86.718 Personal history of other venous thrombosis and embolism; Z87.440 Personal history of urinary (tract) infections; Z87.820 Personal history of traumatic brain injury; Z95.828 Presence of other vascular implants and grafts; Z74.09 Other reduced mobility; Z93.6 Other artificial openings of urinary tract status; Z85.51 Personal history of malignant neoplasm of bladder; F19.11 Other psychoactive substance abuse, in remission; Z68.20 Body mass index [BMI] 20.0-20.9, adult; Z20.822 Contact with and (suspected) exposure to COVID-19; L60.3 Nail dystrophy; F29 Unspecified psychosis not due to a substance or known physiological condition; F39 Unspecified mood [affective] disorder
CPT/HCPCS: 36415; 51702; 71045; 83605; 83735; 84100; 84484; 85025; 85730; 87040; 87077; 87086; 93005; A4663; A6213; C1758; G0378; J0692; J2020; J2543; J3370; J3480; J3490; J7030; J7050; J7060